=== PATIENT | female | born 1940 | race African-American/Black ===

== ENCOUNTER 2017-02-25 14:13 | Emergency (ER) | payer MEDICARE ==
[2017-02-25 14:35] LABS: #Basophils 0.1 thou/uL (0.0-0.2); #Eosinphils 0.1 thou/uL (0.0-0.7); #Lymphocytes 2.4 thou/uL (1.20-3.40); #Monocytes 0.8 thou/uL (0.11-0.59); #Neutrophils 2.5 thou/uL (1.40-6.50); %Basophils 1.3 % (0.0-1.0); %Eosinophils 1.1 % (0.0-10.0); %Monocytes 13.6 % (0.0-10.0); Hematocrit 36.6 % (36.0-47.0); Mean Platelet Volume 6.9 fL (7.4-10.4); White Blood Cell (WBC) Count 5.9 thou/uL (4.8-10.8)
[2017-02-25 14:58] LABS: ALT (SGPT) Less than 7 U/L (8-55); AST (SGOT) 14 U/L (5-34); Alkaline Phosphatase 119 U/L (40-150); Anion Gap 13 mmol/L (10-20); BUN (Urea Nitrogen) 20 mg/dL (9.8-20.1); Bilirubin, Total 0.2 mg/dL (0.2-1.2); CK (CPK) 48 U/L (29-168); Calc. Creatinine Clearance 0 mL/min (70-130); Calcium 9.6 mg/dL (7.8-10.44); Carbon Dioxide 34 mmol/L (23-31); Chloride 98 mmol/L (98-107); Estimated GFR-MDRD 48; Globulin 3.4 g/dL (2.4-3.5); Protein, Total 7.5 g/dL (6.0-8.3)
[2017-02-25 15:03] LABS: Troponin I Less than 0.010 ng/mL (< 0.028)
--- NOTE | 2017-02-25 15:26 | RAD ---
FRONTAL VIEW CHEST: INDICATION: New-onset chest pain. FINDINGS: The cardiomediastinal silhouette is stable. No new consolidation or effusion. No pneumothorax is se en. IMPRESSION: Stable chest. POS: [facility]
[2017-02-25 15:46] LABS: Prothrombin Time 14.7 SEC (12.0-14.7)
[2017-02-25 15:50] LABS: Magnesium 2.5 mg/dL (1.6-2.6)
[2017-02-25 18:22] LABS: Troponin I Less than 0.010 ng/mL (< 0.028)
== END 2017-02-25 18:50 | disposition home or self-care (01) ==
LOC: ERS 14:13
DX: R07.9 Chest pain, unspecified (principal); I48.91 Unspecified atrial fibrillation; I10 Essential (primary) hypertension; M19.90 Unspecified osteoarthritis, unspecified site; K21.9 Gastro-esophageal reflux disease without esophagitis; Z79.01 Long term (current) use of anticoagulants; Z79.891 Long term (current) use of opiate analgesic; Z79.899 Other long term (current) drug therapy
CPT/HCPCS: 36415; 71010; 80053; 82553; 83690; 83735; 83880; 84484; 85025; 85610; 93005

== ENCOUNTER 2017-06-28 08:04 | Outpatient (CLI) | payer MEDICARE | END 2017-06-28 08:05 | disposition home or self-care (01) | LOC: BICMAMMO 08:04 | PROVIDERS: ATTEND Internal Medicine | DX: Z12.31 Encounter for screening mammogram for malignant neoplasm of breast (principal); R92.1 Mammographic calcification found on diagnostic imaging of breast | CPT/HCPCS: 77063; 77067 ==

== ENCOUNTER 2017-11-14 14:08 | Observation (INO) | payer MEDICARE ==
[2017-11-14 14:27] LABS: #Basophils 0.1 thou/uL (0.0-0.2); #Eosinphils 0.1 thou/uL (0.0-0.7); #Lymphocytes 2.9 thou/uL (1.20-3.40); #Monocytes 0.8 thou/uL (0.11-0.59); #Neutrophils 3.8 thou/uL (1.40-6.50); %Basophils 0.7 % (0.0-1.0); %Eosinophils 1.9 % (0.0-10.0); %Lymphocytes 38.1 % (21.0-51.0); %Monocytes 9.9 % (0.0-10.0); %Neutrophils 49.4 % (42.0-75.0); Hemoglobin 11.6 g/dL (12.0-16.0); Mean Corpuscular HGB CONC 32.1 g/dL (32.0-36.0); Mean Corpuscular Volume 80.9 fL (78.0-98.0); Mean Platelet Volume 7.1 fL (7.4-10.4); Platelet Count 275 thou/uL (130-400); RBC Distribution Width 12.3 % (11.5-14.5); Red Blood Cell (RBC) Count 4.46 mill/uL (4.20-5.40); White Blood Cell (WBC) Count 7.7 thou/uL (4.8-10.8)
[2017-11-14 14:33] LABS: Prothrombin Time 15.4 SEC (12.0-14.7)
[2017-11-14 14:34] LABS: PTT 43.5 SEC (22.9-36.1)
[2017-11-14 14:35] LABS: INR-International Normal Ratio 1.2
--- NOTE | 2017-11-14 14:41 | CT ---
CT BRAIN WITHOUT CONTRAST: Date: 11/14/17 HISTORY: Stroke alert. Tingling and numbness of left arm and leg. COMPARISON: CT brain of 2008. FINDINGS: There is advanced chronic white matter microvascular ischemic changes. No acute hemorrhage. No midlin e shift or mass effect. No large volume territorial infarctions appreciated. 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 The paranasal sinuses and mastoids are clear. Globes are intact. IMPRESSION: Chronic changes. No acute hemorrhage or large volume infarction. Findings called to Dr. Kowalski at 1422 hours. CODE CR. POS: [facility]
[2017-11-14 14:45] LABS: ALT (SGPT) Less than 7 U/L (8-55); AST (SGOT) 16 U/L (5-34); Albumin 4.4 g/dL (3.4-4.8); Alkaline Phosphatase 136 U/L (40-150); Anion Gap 14 mmol/L (10-20); BUN (Urea Nitrogen) 20 mg/dL (9.8-20.1); Bilirubin, Total 0.3 mg/dL (0.2-1.2); Calc. Creatinine Clearance 0 mL/min (70-130); Calcium 9.5 mg/dL (7.8-10.44); Carbon Dioxide 25 mmol/L (23-31); Chloride 103 mmol/L (98-107); Estimated GFR-MDRD 46; Globulin 3.2 g/dL (2.4-3.5); Glucose 137 mg/dL (83-110); Potassium 4.2 mmol/L (3.5-5.1); Protein, Total 7.6 g/dL (6.0-8.3); Sodium 138 mmol/L (136-145)
[2017-11-14 14:51] LABS: CKMB 0.6 ng/mL (0-6.6); Troponin I Less than 0.010 ng/mL (< 0.028)
--- NOTE | 2017-11-14 15:46 | RAD ---
RADIOGRAPH CHEST 1 VIEW: HISTORY: 77-year-old female with chest pain. FINDINGS: The thoracic aorta is tortuous and ectatic. There is no evidence of air space density, pneumothorax, or pulmonary edema. The lateral costophrenic angles are sharp. IMPRESSION: 1) No acute pulmonary findings. 2) Ectasia of thoracic aorta. jn POS: CET
[2017-11-14] MEDS ORDERED: Senokot 8.6 MG TAB PO PRN (17:30)
[2017-11-14] MEDS ORDERED: Acetaminophen 325 MG TAB PO PRN (17:30)
[2017-11-14 18:04] VITALS: BMI 24.9
[2017-11-14 18:18] LABS: Troponin I Less than 0.010 ng/mL (< 0.028)
[2017-11-14 21:07] LABS: Troponin I Less than 0.010 ng/mL (< 0.028)
--- NOTE | 2017-11-14 23:02 | HP ---
DATE OF ADMISSION: 11/14/2017 CHIEF COMPLAINT: Numbness. HISTORY OF PRESENT ILLNESS: Patient is a 77-year-old female [facility] of some numbness in her left hand. She also reported to me some numbness in the left lower extremity. The patient reports that she has had this in the past and she has actually been in the hospital now, had it evaluated before. Her records indicated that she was last here 2 years ago, at which time she was having issues with atrial fibrillation, but not much mention of any numbness a t that time. The patient reports that she was in her usual state of health this morning, when she st arted experiencing some pain in the left lower extremity that extended up the leg and then affected h er left upper extremity as well that is what prompted her to come to the hospital. She reports that while she was checking in to the emergency department, she had a very brief episode of chest pain, it resolved spontaneously. She had another episode while I was talking to her that was gone within les s than one minute. She states that it is not uncommon for her to have these episodes and they never last very long. She also reports that she will occasionally have some of this numbness, but it tends to go away and does not last long enough for her to be concerned enough that she would come, have it evaluated further. Her pain in the chest has resolved. She describes it as a pressure-type pain. She has no associated symptoms or radiation with it. REVIEW OF SYSTEMS: Notable for tendency toward constipation requiring some stool softeners. Otherwi se 10-system review is negative except for those things mentioned in the history of present illness. PAST MEDICAL HISTORY: Notable for the atrial fibrillation, hypertension, osteoarthritis. Patient re ports that she does have follow up with Dr. Hassan is her corporate travel consultant. Chronic kidney disease sta ge 3, followed by Dr. Teran. PAST SURGICAL HISTORY: Cholecystectomy, hysterectomy. SOCIAL HISTORY: Patient is a nonsmoker, nondrinker, nondrug user. She is . She is FULL CODE and her daughter would be her surrogate decision maker. FAMILY HISTORY: Father of an [place]. Mother had cancer. Brother had cancer. Sister had systemic lupus. ALLERGIES: None. CURRENT MEDICATIONS: Lasix 40 mg every day, isosorbide mononitrate 30 mg every day, Coreg 12.5 every day, clonidine 0.1 mg t.i.d., tramadol 50 mg b.i.d., Eliquis 5 mg b.i.d., hydralazine 50 mg t.i.d., Nifedical 60 mg extended-release p.o. b.i.d., lisinopril 5 mg daily, Protonix 40 mg p.o. daily. PHYSICAL EXAMINATION: VITAL SIGNS: BP 153/74, pulse 78, respirations 16, temperature is 97.9, O2 sats 100%. GENERAL APPEARANE: Age appropriate female, very pleasant and cooperative. She is in no distress. HEENT: PERRL. No OP lesions. NECK: Supple and symmetric. CARDIOVASCULAR: Regular rate and rhythm without murmurs, gallops, or rubs. LUNGS: Clear to auscultation bilaterally with good chest wall expansion and air exchange. ABDOMEN: Soft, nontender, nondistended with positive bowel sounds. EXTREMITIES: Warm and dry. There is trace to 1+ edema in the left ankle. NEUROLOGIC: Patient has full strength and sensation bilaterally. She has no evidence of hypoesthesi as. LABORATORY DATA: White count 7.7, hemoglobin 11.6, platelets 275. INR 1.2, PTT 43.5. Sodium 138, p otassium 4.2, chloride 103, CO2 of 25, BUN 20, creatinine 1.34. Troponin is less than 0.01. Chest x -ray is negative. CT scan of the brain revealed some chronic changes, but no acute hemorrhage or lar ge volume infarction appears to have some old-basal ganglia infarctions present. IMPRESSION AND PLAN: 1. Left-sided numbness. It is unclear if this represents some type of radiculopathy, cord compressi on or transient ischemic attack type symptoms. We will keep the patient on telemetry. We will get M RI of the head and C-spine. We will also obtain an echocardiogram and carotid Dopplers. 2. Chest pain. Patient certainly has significant risk factors. We will keep her on telemetry and g et serial cardiac isoenzymes. 3. Chronic kidney disease, stage 3. Continue with her usual home regimen. She appears to be at her baseline presently. 4. History of hypertension. Continue with her home regimen including lisinopril, Nifedical, hydrala zine, clonidine, and Coreg.
--- NOTE | 2017-11-15 09:23 | MRI ---
MRI BRAIN WITHOUT CONTRAST: Date: 11/15/17 HISTORY: TIA symptoms. COMPARISON: CT brain from 11/14/17. FINDINGS: There is no acute territorial infarct or hemorrhage on the diffusion-weighted imaging sequence. This is confirmed on the ADC map. On the susceptibility weighted imaging sequence, there are no abnormal areas of hemorrhage. There is moderate gliosis with subcortical and deep white matter microvascular ischemic changes, security technician rajinder. Corpus callosum is intact. There is normal marrow signal of the clivus. Moderate degenerative changes upper cervical spine. No hydrocephalus. No midline shift or mass effect. Globes are intact. [employer] [place] flow-voids are maintained. IMPRESSION: 1. No acute intracranial hemorrhage or infarct. 2. Mild microvascular ischemic changes, chronic. POS: SON[facility]
[2017-11-15] MEDS ORDERED: traMADol HCl 50 MG TAB PO PRN (09:47)
[2017-11-15] MEDS ORDERED: Lisinopril 5 MG TAB PO SCH ×2 (10:00→21:00)
[2017-11-15] MEDS ORDERED: Furosemide 40 MG TAB PO SCH (10:00)
[2017-11-15] MEDS ORDERED: NIFEdipine XL 60 MG TAB PO SCH ×2 (10:00→21:00)
[2017-11-15] MEDS ORDERED: Nebivolol HCl 5 MG TAB PO SCH ×2 (10:00→21:00)
[2017-11-15] MEDS ORDERED: Polyethylene Glycol 3350 17 GM Packet PO SCH (10:00)
[2017-11-15] MEDS ORDERED: Apixaban 5 MG TAB PO SCH ×2 (10:00→21:00)
--- NOTE | 2017-11-15 10:13 | MRI ---
MRI CERVICAL SPINE WITHOUT CONTRAST: INDICATIONS: History of TIA symptoms and left shoulder pain. COMPARISON: None. TECHNIQUE: Multiplanar, multisequence MR images were obtained of the cervical spine without IV contrast. FINDINGS: The bone marrow signal intensity appears within normal limits. The visualized aspects of the posterior fossa appear within normal limits. The visualized aspects of the prevertebral soft tissues appear within normal limits. The craniocervical junction, on the sagittal images only, appears within normal limits. At the C2-C3 level, there is mild to moderate facet joint degenerative change and a small central pro trusion. The protrusion does efface the ventral subarachnoid space without cord contact. No appreci able neural foraminal narrowing is evident. At C3-C4, there is a broad-based disk osteophyte complex with facet joint degenerative change. There is some slight prominence and buckling of the ligamentum flavum that causes moderate narrowing of th e central canal with mild cord flattening. At C4-C5, there is facet joint degenerative change. There is no appreciable neural foraminal or cent ral canal narrowing. At C5-C6, there is a mild broad-based disk osteophyte complex with facet joint degenerative change. There is uncovertebral hypertrophy. There is mild right neural foraminal narrowing and mild central canal narrowing. At C6-C7, there is a mild broad-based bulge and uncovertebral hypertrophy with facet joint degenerati ve change without appreciable central canal or neural foraminal narrowing. At C7-T1, there is a mild broad-based disk osteophyte complex and facet joint degenerative change wit hout appreciable central canal or neural foraminal narrowing. IMPRESSION: 1. Multilevel spondylosis of the cervical spine with moderate narrowing of the central canal at C3-C 4 due to a broad-based disk bulge and prominence of the ligamentum flavum. There is mild cord flatte suhail. 2. Mild central canal and mild right neural foraminal narrowing at C5-C6 due to uncovertebral hypert rophy and facet joint degenerative change. POS: [facility]
--- NOTE | 2017-11-15 10:15 | PRG ---
DATE OF SERVICE: 11/15/2017 SUBJECTIVE: The patient feels fine this morning. She has no further numbness. No further chest fiona n. OBJECTIVE: VITAL SIGNS: Temperature 97.6, pulse 61, respirations 18, she is 99% on room air, BP 157/61 up to 17 190. GENERAL APPEARANCE: Age appropriate female in no distress. She is awake, alert, oriented, pleasant and cooperative. HEART: Has regular rate and rhythm without murmurs, gallops or rubs. LUNGS: Clear bilaterally. ABDOMEN: Soft, nontender and nondistended. EXTREMITIES: Warm and dry. NEUROLOGIC: Patient has 5/5 strength in all 4 extremities and normal sensation throughout. IMAGING DATA: Results so far, MRI of the brain shows some mild microvascular issues, but nothing radha or otherwise. IMPRESSION AND PLAN: 1. Left-sided paresthesias, unclear etiology. Patient will have an MRI of the C-spine, carotid Dopp lers and an echocardiogram today. Also, have a Neurology consult. 2. Chest pain, very brief episodes lasting less than 1 minute and fairly atypical in nature. She benton s had negative troponins x3. Continue with tele. I have echocardiogram performed today. If that al l remains unremarkable, would simply have the patient follow up on that as an outpatient. 3. Hypertension. Resume the patient's usual home medications. 4. Mild chronic renal insufficiency. This is stable and at her baseline. 5. Hyperlipidemia. Continue with Lipitor. 6. History of atrial fibrillation. Continue with Eliquis.
--- NOTE | 2017-11-15 10:55 | ULT ---
CAROTID DOPPLER ULTRASOUND: Date: 11/15/17 HISTORY: TIA symptoms. COMPARISON: MRI brain dated 11/15/17. TECHNIQUE: Real-time Rene scale, color Doppler, and spectral analysis of the extracranial carotid and vertebral arteries was performed. FINDINGS: Antegrade flow both vertebral arteries. No elevated peak systolic velocities of the internal carotid arteries. Right ICA/CCA ratio is 0.90. Left ICA/CCA ratio is 1.31. IMPRESSION: No hemodynamically significant stenosis. POS: [facility]
[2017-11-15] MEDS ORDERED: hydrALAZINE 25 MG TAB PO SCH (15:00)
[2017-11-15] MEDS ORDERED: cloNIDine 0.1 MG TAB PO SCH (15:00)
[2017-11-15 15:58] VITALS: BP 138/58; TEMP 98.1
[2017-11-15] MEDS ORDERED: Atorvastatin Calcium 10 MG TAB PO SCH (21:00)
--- NOTE | 2017-11-15 23:51 | DIS ---
DATE OF ADMISSION: 11/14/2017 DATE OF DISCHARGE: 11/15/2017. DISCHARGE DIAGNOSES: 1. Left-sided paresthesias. 2. Cervical spinal stenosis secondary to broad-based disk bulge and prominent ligamentum flavum at C 3-C4 with mild cord flattening. 3. Hypertension. 4. Chronic kidney disease stage 3. 5. Chest pain. HOSPITAL COURSE: This patient is a 77-year-old female who presented via the emergency department [facility] with some left-sided numbness. The patient reported that she had had similar episodes in the past, but that typically had resolved. She also reported a very brief pain in the left chest area to maciel the shoulder which lasted less than a minute. She had initial CT scan of the brain which was un remarkable. She was subsequently placed in the hospital for possible TIA type symptoms. The patient had a chest x-ray which was negative. She had a brain MRI which was unremarkable. Carotid Dopplers were negative. Cervical spine MRI did reveal the above-mentioned disk bulge with hypertrophic ligam entum flavum with some flattening of the spine at C3-C4. She was seen in consultation by Neurology a s well. Ultimately, it was felt that the patient's symptoms were more likely related to neuropathy t john from ischemic issues. With that, the patient was felt to be stable for discharge to home. Of no te, echocardiogram is currently being obtained and results are still pending at the time of discharge . PHYSICAL EXAMINATION: VITAL SIGNS: On the day of discharge, temperature is 98.1, pulse 51, respirations 16, O2 sat 99% on room air, BP 138/58. GENERAL: Extremely pleasant age appropriate female in no distress. She is awake, alert, oriented, p leasant, cooperative. HEENT: PERRL. No OP lesions. NECK: Supple and symmetric. HEART: Regular rate and rhythm. LUNGS: Clear bilaterally. ABDOMEN: Soft, nontender and nondistended. EXTREMITIES: Warm and dry. NEUROLOGIC: She has normal sensation and strength throughout. DISPOSITION: The patient will be discharged home. She will be on a renal diet. Her activity level is as tolerated. She will continue with her usual home medications with no new additions and she bao l follow up with Alison Castillo at next available appointment. She will be called if there are any signif icant findings on the echocardiogram.
--- NOTE | 2017-11-16 00:07 | CON ---
DATE OF CONSULTATION: 11/15/2017 REFERRING PROVIDER: Dr. Lamin Ivy. REASON FOR CONSULTATION: Left-sided paresthesia. HISTORY OF PRESENT ILLNESS: Ms. Myles is a pleasant 77-year-old -Monegas[place] female, who has b een consulted for evaluation of left-sided paresthesia. She reports that yesterday she started notic ing numbness and tingling in her left hand which then followed involving whole left upper extremity a nd left lower extremity. She also had some numbness and tingling on the left side of the face. She also complained of having headache in the left frontotemporal region. She also had chest pain along with the numbness and tingling. She denied having vision changes, diplopia, ptosis, dysarthria, dysp hagia or difficulty with gait or balance. She denied having any weakness in upper and lower extremit ies. She reports that her symptoms are much improved this morning. She denies having any headache, chest pain, palpitation, lightheadedness or dizziness at this time. PAST MEDICAL HISTORY: Significant for hypertension, atrial fibrillation, osteoarthritis, chronic kid gibran disease stage 3. PAST SURGICAL HISTORY: Significant for cholecystectomy and hysterectomy. SOCIAL HISTORY: She denies smoking, alcohol use, or illicit drug use. FAMILY HISTORY: Significant for father who of [place]. Mother and brother with cancer. CURRENT MEDICATIONS: Please review MAR. ALLERGIES: No known drug allergies. REVIEW OF SYSTEMS: As mentioned above in history of present illness negative. PHYSICAL EXAMINATION: VITAL SIGNS: Blood pressure 138/58, pulse of 51, temperature of 98.1, respirations of 16, O2 sats 99 % on room air. GENERAL: Well-developed, well-nourished -Monegasque female, in no apparent distress. RESPIRATORY: Clear to auscultation bilaterally. CARDIOVASCULAR: Regular rate and rhythm. NEUROLOGIC: Mental status: The patient is awake, alert, oriented x3. Speech and language: Fluent speech. Cranial nerves: Pupils are 3 mm and reactive. Visual ventura are intact. Extraocular muscl es are intact. No nystagmus is noted. Face is symmetric. Tongue and uvula are midline. Motor exam showed normal tone and bulk with 5/5 strength in both upper extremities. Sensory: Sensation is int act and symmetric. Deep tendon reflexes 2+ reflexes in both upper and lower extremities. Babinski: Plantar responses flexion bilaterally. Coordination intact to [id number] and finger tapping bilaterally. LABORATORY DATA: Reviewed, which included CBC, coag panel, CMP, which is significant for PT of 15.4, INR 1.2, PTT of 43.5, creatinine of 1.34. Otherwise, unremarkable. IMAGING STUDIES: MRI brain without contrast was reviewed, which showed no acute intracranial abnorma lity. MRI C-spine was reviewed, which showed multilevel degenerative disk disease. Carotid Doppler results were reviewed, which showed no hemodynamically significant stenosis on both sides. IMPRESSION: 1. Transient episode of left-sided paresthesia, likely transient ischemic attack. 2. History of atrial fibrillation. 3. Malignant hypertension. Ms. Myles is a pleasant 77-year-old -[place]one[place] female with a history of hypertension and atri al fibrillation who presented with the left-sided paresthesia. Her symptoms are now resolved. This event is likely suggestive of TIA. I have reviewed her MRI brain and C-spine. Brain showed no acute intracranial abnormality. MRI C-spine showed mild to moderate multilevel degenerative disk disease. At this time, I would recommend continuing on Eliquis for secondary stroke prevention. Patient is okay to be discharged to home. Thank you for consultation.
[2017-11-16] MEDS ORDERED: Furosemide 40 MG TAB PO SCH (09:00)
[2017-11-16] MEDS ORDERED: Polyethylene Glycol 3350 17 GM Packet PO SCH (09:00)
--- NOTE | 2017-11-16 14:51 | EKG ---
Test Reason : Blood Pressure : / mmHG Vent. Rate : 066 BPM Atrial Rate : 066 BPM P-R Int : 166 ms QRS Dur : 080 ms QT Int : 408 ms P-R-T Axes : 064 023 030 degrees QTc Int : 427 ms Normal sinus rhythm Normal ECG Confirmed by EDWARDO MARTINEZ ([id number]), editor map SUKHI CONTI ([id number]) on 11/16/2017 2:51:14 PM Referred By: Confirmed By:EDWARDO MARTINEZ
== END 2017-11-15 17:09 | disposition home or self-care (01) ==
LOC: ERS 14:08 → 2SE 16:07
PROVIDERS: ADMIT Internal Medicine; ATTEND Internal Medicine
DX: R20.2 Paresthesia of skin (principal); M48.02 Spinal stenosis, cervical region; I12.9 Hypertensive chronic kidney disease with stage 1 through stage 4 chronic kidney disease, or unspecified chronic kidney disease; N18.3 Chronic kidney disease, stage 3 (moderate); I48.91 Unspecified atrial fibrillation; Z79.01 Long term (current) use of anticoagulants; Z79.899 Other long term (current) drug therapy
CPT/HCPCS: 70450; 70551; 71045; 72141; 80053; 82553; 82962; 84484 ×2; 85025; 85610; 85730; 93005; 93306; 93880; 99285; G0378 ×2; 36415; 36416

== ENCOUNTER 2018-06-29 09:46 | Outpatient (CLI) | payer MEDICARE ==
--- NOTE | 2018-06-29 11:22 | MMO ---
Bilateral MAMMO Bilat Screen [facility]. CLINICAL HISTORY: Patient is 78 years old and is seen for screening. The patient has no family history of breast cancer. The patient has no personal history of cancer. The patient has a history of left Excisional Biopsy in 1969 - benign. VIEWS: The views performed were: bilateral craniocaudal with tomosynthesis; bilateral mediolateral oblique with tomosynthesis; left mediolateral oblique; and left exaggerated craniocaudal. FILMS COMPARED: The present examination has been compared to prior imaging studies performed at on 05/16/2008, 05/22/2009, 05/25/2010, 05/27/2011, 06/06/2014, 06/09/2015, 06/09/2016 and 06/28/2017. MAMMOGRAM FINDINGS: The breasts are heterogeneously dense, which could obscure a lesion on mammography. Finding 1: There are stable benign appearing calcifications seen in both breasts. There are also vascular calcifications. Finding 2: There is a stable nodule seen in the inner region of the right breast. There are no suspicious masses, suspicious calcifications, or new areas of architectural distortion. IMPRESSION: THERE IS NO MAMMOGRAPHIC EVIDENCE OF MALIGNANCY. A ROUTINE FOLLOW-UP MAMMOGRAM IN 1 YEAR IS RECOMMENDED. THE RESULTS OF THIS EXAM WERE SENT TO THE PATIENT. ACR BI-RADS Category 2 - Benign finding MAMMOGRAPHY NOTE: 1. A negative mammogram report should not delay a biopsy if a dominant of clinically suspicious mass is present. 2. Approximately 10% to 15% of breast cancers are not detected by mammography. 3. Adenosis and dense breasts may obscure an underlying neoplasm.
== END 2018-06-29 09:47 | disposition home or self-care (01) ==
LOC: BICMAMMO 09:46
PROVIDERS: ATTEND Internal Medicine
DX: Z12.31 Encounter for screening mammogram for malignant neoplasm of breast (principal)
CPT/HCPCS: 77063; 77067

== ENCOUNTER 2019-01-29 19:22 | Inpatient (IN) | payer MEDICARE ==
[2019-01-29 20:03] LABS: #Basophils 0.1 thou/uL (0.0-0.2); #Eosinphils 0.1 thou/uL (0.0-0.7); #Lymphocytes 2.9 thou/uL (1.20-3.40); #Monocytes 0.7 thou/uL (0.11-0.59); #Neutrophils 4.6 thou/uL (1.40-6.50); %Basophils 0.8 % (0.0-1.0); %Eosinophils 0.8 % (0.0-10.0); %Lymphocytes 34.6 % (21.0-51.0); %Monocytes 8.8 % (0.0-10.0); Hemoglobin 12.8 g/dL (12.0-16.0); Mean Corpuscular HGB CONC 31.8 g/dL (32.0-36.0); Mean Corpuscular Hemoglobin 25.8 pg (27.0-31.0); Mean Corpuscular Volume 81.1 fL (78.0-98.0); Mean Platelet Volume 7.1 fL (7.4-10.4); Platelet Count 334 thou/uL (130-400); RBC Distribution Width 12.5 % (11.5-14.5); Red Blood Cell (RBC) Count 4.97 mill/uL (4.20-5.40); White Blood Cell (WBC) Count 8.3 thou/uL (4.8-10.8)
--- NOTE | 2019-01-29 20:21 | CT ---
CT head noncontrast HISTORY: Dizziness. Hypertension. COMPARISON: 11/14/2017. FINDINGS: There is no evidence of acute intracranial hemorrhage or infarct. Mild diffuse cortical atr ophy and chronic ischemic small vessel disease. Stable. There is no mass effect or shift of midline structures. Visualized paranasal sinuses remain well aerated. IMPRESSION: Chronic-type findings are stable. No acute intracranial abnormalities are demonstrated.
[2019-01-29 20:25] LABS: ALT (SGPT) Less than 7 U/L (8-55); AST (SGOT) 14 U/L (5-34); Albumin 4.8 g/dL (3.4-4.8); Alkaline Phosphatase 136 U/L (40-110); Anion Gap 16 mmol/L (10-20); BUN (Urea Nitrogen) 18 mg/dL (9.8-20.1); Bilirubin, Total 0.3 mg/dL (0.2-1.2); Calc. Creatinine Clearance 0 mL/min (70-130); Calcium 10.2 mg/dL (7.8-10.44); Carbon Dioxide 25 mmol/L (23-31); Chloride 104 mmol/L (98-107); Estimated GFR-MDRD 49; Globulin 3.5 g/dL (2.4-3.5); Glucose 103 mg/dL (83-110); Lipase 23 U/L (8-78); Protein, Total 8.3 g/dL (6.0-8.3); Sodium 141 mmol/L (136-145)
[2019-01-29] MEDS ORDERED: Diltiazem HCl 125 MG, Admixture Fee 1 EACH in Sodium Chloride 0.9% 100 ML IVPB SCH (21:15)
[2019-01-29] MEDS ORDERED: Aspirin Chewable 81 MG TAB ONE (22:21)
[2019-01-29] MEDS ORDERED: Metoprolol Tartrate 5 MG/5 ML VIAL ONE (22:42)
[2019-01-29 23:54] LABS: Troponin I 0.017 ng/mL (< 0.028)
[2019-01-30] MEDS ORDERED: Nitroglycerin 2% Ointment 1 INCH/1 GM Packet ONE (00:29)
[2019-01-30] MEDS ORDERED: Acetaminophen 325 MG TAB ONE (00:36)
[2019-01-30 01:25] VITALS: BMI 24.6
[2019-01-30] MEDS ORDERED: Acetaminophen 325 MG TAB PO PRN (01:36)
[2019-01-30] MEDS ORDERED: Ondansetron PF 4 MG/2 ML Vial IVP PRN ×2 (01:36→01:46)
[2019-01-30] MEDS ORDERED: Ondansetron ODT 4 MG TAB SL PRN (01:36)
[2019-01-30] MEDS ORDERED: Acetaminophen 500 MG TAB PO PRN (01:46)
[2019-01-30] MEDS ORDERED: traMADol HCl 50 MG TAB PO PRN (01:46)
[2019-01-30] MEDS ORDERED: cloNIDine 0.1 MG TAB PO PRN (01:46)
[2019-01-30] MEDS ORDERED: hydrALAZINE 20 MG/ML VIAL SLOW IVP PRN (01:46)
[2019-01-30] MEDS ORDERED: Ondansetron ODT 4 MG TAB PO PRN (01:46)
[2019-01-30 02:45] LABS: Troponin I Less than 0.010 ng/mL (< 0.028)
[2019-01-30 02:46] LABS: Band 1 % (5-11); Eosinophils 1 % (0-10); Hemoglobin 13.2 g/dL (12.0-16.0); Lymphocytes 40 % (21-51); MDiff Complete? YES; Mean Corpuscular HGB CONC 32.1 g/dL (32.0-36.0); Mean Corpuscular Hemoglobin 26.1 pg (27.0-31.0); Mean Corpuscular Volume 81.2 fL (78.0-98.0); Mean Platelet Volume 7.1 fL (7.4-10.4); Monocytes 8 % (0-10); Neutrophil 49 % (42-75); Platelet Count 321 thou/uL (130-400); RBC Distribution Width 12.5 % (11.5-14.5); Reactive Lymphocytes 1 % (0-10); Red Blood Cell (RBC) Count 5.05 mill/uL (4.20-5.40); White Blood Cell (WBC) Count 7.4 thou/uL (4.8-10.8)
[2019-01-30 02:58] LABS: Anion Gap 17 mmol/L (10-20); BUN (Urea Nitrogen) 16 mg/dL (9.8-20.1); Calc. Creatinine Clearance 39 mL/min (70-130); Calcium 10.3 mg/dL (7.8-10.44); Carbon Dioxide 22 mmol/L (23-31); Chloride 106 mmol/L (98-107); Estimated GFR-MDRD 54; Glucose 103 mg/dL (83-110); Magnesium 1.9 mg/dL (1.6-2.6); Potassium 3.4 mmol/L (3.5-5.1); Sodium 142 mmol/L (136-145)
[2019-01-30] MEDS ORDERED: Nitroglycerin 2% Ointment 1 INCH/1 GM Packet TOP SCH (06:00)
--- NOTE | 2019-01-30 07:32 | HP ---
PRIMARY CARE PROVIDER: lAison Castillo MD CHIEF COMPLAINT: Dizziness. HISTORY OF PRESENT ILLNESS: This is an 78-year-old female, who presented to [facility] Emergency Department complaining of dizziness for approximately 1 week. Symptoms were intermittent without relation to any specific activity; however, the patient did notice some increase in dizziness with movement. The patient denied any chest pain, nausea, vomiting or diarrhea. The patient denied any unilateral weakness, difficulty with speech or visual disturbance. The patient denied any recent fall, travel history or family members with similar symptoms. The patient did admit to some chest discomfort related to palpitations, which the patient has intermittently. The patient denied any fever, chills, change to her chronic medication regimen, blood in her stool or dysuria. In the emergency room, the patient underwent general evaluation and noted on EKG with atrial fibrillation with heart rates in the 110s to 120s. The patient received IV metoprolol in addition to transdermal nitroglycerin and aspirin 324 mg. The patient was also noted with elevated blood pressure with systolic 205 and a diastolic of 97. The patient was referred to the hospitalist service in observation unit for further evaluation. PAST MEDICAL HISTORY: 1. Hypertension. 2. Chronic atrial fibrillation, on chronic anticoagulation with Eliquis. 3. Osteoarthritis. 4. Chronic kidney disease, stage 3. 5. Cervical spinal stenosis. PAST SURGICAL HISTORY: 1. Status post cholecystectomy. 2. Status post hysterectomy. CURRENT MEDICATIONS: 1. Vitamin D3 1000 units p.o. daily. 2. Hydralazine 50 mg p.o. t.i.d. 3. Lisinopril 5 mg p.o. b.i.d. 4. Nifedipine XL 60 mg p.o. b.i.d. 5. Protonix 40 mg p.o. daily. 6. Pravachol 40 mg p.o. at bedtime. 7. Tramadol 50 mg p.o. b.i.d. p.r.n. 8. Eliquis 5 mg p.o. b.i.d. 9. Clonidine 0.1 mg p.o. t.i.d. 10. Lasix 40 mg p.o. daily. 11. Imdur 30 mg p.o. daily. ALLERGIES: NO KNOWN DRUG ALLERGIES. FAMILY HISTORY: Father of complications of a myocardial infarction. Mother with an unknown type of cancer. SOCIAL HISTORY: The patient resides in [place], [place]. Functional of all activities of daily living. No alcohol, tobacco or illicit drug use. Retired. REVIEW OF SYSTEMS: CONSTITUTIONAL: Negative for weight loss or gain, ability to conduct usual activities. SKIN: Negative for rash, itching. EYES: Negative for double vision, pain. ENT/MOUTH: Negative for nose bleeding, neck stiffness, pain, tenderness. CARDIOVASCULAR: Negative for palpitations, dyspnea on exertion, orthopnea. RESPIRATORY: Negative for shortness of breath, wheezing, cough, hemoptysis, fever or night sweats. GASTROINTESTINAL: Negative for poor appetite, abdominal pain, heartburn, nausea, vomiting, constipation, or diarrhea. GENITOURINARY: Negative for urgency, frequency, dysuria, nocturia. MUSCULOSKELETAL: Negative for pain, swelling. NEUROLOGIC/PSYCHIATRIC: Negative for anxiety, depression. ALLERGY/IMMUNOLOGIC: Negative for skin rash, bleeding tendency. Otherwise negative except as stated per HPI. PHYSICAL EXAMINATION: VITAL SIGNS ON ADMISSION: Blood pressure 181/88, pulse 78, respiratory rate 14, temperature 97.9 degrees Fahrenheit, and O2 saturation 100% on room air. GENERAL APPEARANCE: This is an 78-year-old female, alert and oriented x3, pleasant, responsive, in no acute distress. HEENT: Pupils are equal, round, reactive to light and accommodation. Extraocular muscles are intact. No scleral icterus. No conjunctival injection. Nares patent. OP is clear. Teeth in good repair. NECK: Supple. No cervical adenopathy. No thyromegaly. No carotid bruits. No JVD appreciated. Cervical spine with full active and passive range of motion. No meningeal signs noted. CHEST: Lungs are clear to auscultation bilaterally. CARDIOVASCULAR: S1 and S2 with irregular rate and rhythm. No murmur, rub or gallop appreciated. ABDOMEN: Rounded, soft, nontender, and nondistended. Bowel sounds are positive in all 4 quadrants. No hepatosplenomegaly. No abdominal bruits. No rebound or guarding appreciated. EXTREMITIES: Warm and dry with fair turgor. No clubbing, cyanosis or asymmetric edema appreciated. Pulses are palpable distally at the dorsalis pedis, posterior tibial, and popliteal arteries bilaterally. Capillary refill less than 2 seconds. NEUROLOGIC: Cranial nerves 2 through 12 are grossly intact. No focal or lateralizing signs appreciated. PERTINENT LABORATORY AND X-RAY FINDINGS: Sodium 141, potassium 4.0, chloride 104, CO2 of 25, BUN 18, creatinine 1.28, estimated GFR 49, glucose 103, and calcium 10.2. ALT less than 7 and alkaline phosphatase 136. Troponin I negative x2. Lipase 23. CBC showed a white blood cell count of 8.3, hemoglobin 13, hematocrit 40, and platelet count [address] of the brain without contrast dated 01/29/2019 showed no acute intracranial process. EKG dated 01/29/2019 by my interpretation shows an atrial fibrillation with heart rates in the 110s. Normal R-wave progression noted in the precordial leads. Normal axis. No acute ST-T wave changes appreciated. ASSESSMENT/PLAN: 1. Atrial fibrillation with rapid ventricular response. We will place in observation status on the telemetry unit. Resume home regimen to include nifedipine XL 60 mg b.i.d. with Eliquis 5 mg b.i.d. Continue to monitor for rate control. Check 2D transthoracic echocardiogram in the a.m. 2. Hypertensive urgency. Resume home blood pressure regimen and monitor serial blood pressure response. The patient may need additional titration of her antihypertensive regimen on an ongoing basis after discharge. 3. Chronic kidney disease, stage 3. Avoid nephrotoxic agents and limit contrast exposure. Repeat creatinine in the a.m. 4. Chronic anticoagulation. Continue Eliquis 5 mg b.i.d. Repeat CBC in the a.m. 5. Prophylaxis. SCDs while in bed. Protonix 40 mg p.o. daily. 6. Code status is full. Surrogate medical decision maker is the patient's daughter. Job ID: [id number]
[2019-01-30] MEDS ORDERED: Apixaban 5 MG TAB PO SCH (09:00)
[2019-01-30] MEDS ORDERED: Famotidine 20 MG TAB PO SCH (09:00)
[2019-01-30] MEDS ORDERED: Non-Formulary Item 1 EACH (Hydralazine Hcl [Apresoline] 50 MG) PO SCH (09:00)
[2019-01-30] MEDS: Lisinopril 5 MG TAB PO SCH ×2 (09:33→20:53)
[2019-01-30] MEDS: NIFEdipine XL 60 MG TAB PO SCH ×2 (09:34→20:53)
[2019-01-30] MEDS: cloNIDine 0.1 MG TAB PO SCH ×3 (09:35→20:53)
[2019-01-30] MEDS: hydrALAZINE 25 MG TAB PO SCH ×3 (09:36→20:53)
[2019-01-30] MEDS: Isosorbide Mononitrate (ER) 30 MG TAB PO SCH (09:36)
[2019-01-30] MEDS: Furosemide 40 MG TAB PO SCH (09:40)
--- NOTE | 2019-01-30 16:35 | CON ---
DATE OF CONSULTATION: HISTORY OF PRESENT ILLNESS: Katy Myles is a pleasant 78-year-old black female, who was followed by Dr. Hassan for many years. She has had cardiac catheterizations in the past, which showed mild coronary artery disease. She also has a history of diastolic heart failure and in August 2015, she presented with atrial fibrillation, was placed on Eliquis. In June 2017, an echocardiogram revealed an ejection fraction of 60% to 65% with mild concentric left ventricular hypertrophy and suspicious for diastolic dysfunction. She was last seen by Dr. Hassan in June 2018. It is of note that she was on carvedilol 12.5 mg b.i.d. and she is no longer taking that medication. She states that her insurance would no longer pay for, which is somewhat surprising. Over the last week, she has had intermittent episodes of dizziness. Issues would occur when she would stand up, where she would feel extremely dizzy for 10 to 15 seconds. From her description, this did not sound like vertigo. She did not feel any palpitations. Since she has been admitted, she has been seen to have pauses up to 3.6 seconds when she is in atrial fibrillation. She also complains of chest pressure that also lasts 10 to 15 seconds and does not seem to be related to the dizzy episodes. It is of note in the emergency room, she was given diltiazem 20 mg IV, placed on 5 mg/hour and also given 5 mg of metoprolol intravenously around 2230 hours last night. The first long pause that she had was approximately six and half hours after that. It is unclear to me if she was on Cardizem at that time. PAST MEDICAL HISTORY: Mild coronary artery disease, hypertension, hyperlipidemia, chronic kidney disease, and cervical spinal stenosis. PAST SURGICAL HISTORY: Hysterectomy and cholecystectomy. MEDICATIONS: 1. Eliquis 5 mg b.i.d. 2. Clonidine 0.1 t.i.d. 3. Furosemide 40 daily. 4. Hydralazine 50 mg t.i.d. 5. Isosorbide mononitrate 30 mg q.a.m. 6. Lisinopril 5 mg b.i.d. 7. Nifedipine 60 b.i.d. 8. Protonix 40 daily. 9. Pravastatin 40 at bedtime. 10. Tramadol p.r.n. ALLERGIES: NONE. SOCIAL HISTORY: She does not smoke or drink. FAMILY HISTORY: Father had myocardial infarction. REVIEW OF SYSTEMS: Unremarkable except as above. PHYSICAL EXAMINATION: VITAL SIGNS: Blood pressure 157/73 and pulse is 63 and sinus rhythm at the present time. HEENT: PERRL. NECK: Supple. CHEST: Clear. CARDIAC: S1 and S2 normal without any S3, S4, or murmurs. Carotid upstrokes normal without bruits. ABDOMEN: Normal bowel sounds without tenderness or organomegaly. EXTREMITIES: Revealed no clubbing, cyanosis, or edema. NEUROLOGIC: Grossly intact. SKIN: Warm and dry. LABORATORY DATA: Admission EKG revealed atrial fibrillation with fast ventricular response of 112 per minute, nonspecific ST and T-wave changes. CBC is unremarkable. Sodium 142, potassium 3.4, chloride 106, carbon dioxide 22, BUN 16, and creatinine 1.16. Cardiac enzymes x3 are normal. TSH is normal. IMPRESSION: 1. Paroxysmal atrial fibrillation. 2. Episodes of lightheadedness and dizziness, which may be orthostatic related or could be related to her pauses, which she has up to 3.6 seconds on the monitor here. It is unclear to me if she was still on intravenous Cardizem at that time. Also, she was taking carvedilol 12.5 b.i.d. in June 2018, but stated that the insurance would no longer pay for that, which is somewhat surprising. 3. Mild coronary artery disease. 4. History of diastolic heart failure. 5. Hypertension. 6. Hypercholesterolemia. 7. Gastroesophageal reflux disease. PLAN: The patient will continue to be monitored. She is in sinus rhythm at the present time. She certainly may need a pacemaker placement and to be on antiarrhythmic medication to try to suppress the atrial fibrillation. I would discontinue the Eliquis and place her on Lovenox instead, in case the ultimate decision is made for a pacemaker. We will continue to follow the patient with you. Job ID: [id number]
[2019-01-30] MEDS: Pravastatin Sodium 40 MG TAB PO SCH (20:53)
[2019-01-30] MEDS: Enoxaparin Sodium 60 MG/0.6 ML SYRINGE SC SCH (20:54)
[2019-01-31] MEDS: cloNIDine 0.1 MG TAB PO SCH ×3 (09:53→21:56)
[2019-01-31] MEDS: Enoxaparin Sodium 60 MG/0.6 ML SYRINGE SC SCH ×2 (09:54→21:57)
[2019-01-31] MEDS: hydrALAZINE 25 MG TAB PO SCH ×3 (09:54→21:56)
[2019-01-31] MEDS ORDERED: PROPOFOL 200 MG/20 ML VIAL ONE (09:54)
[2019-01-31] MEDS: Furosemide 40 MG TAB PO SCH (09:54)
[2019-01-31] MEDS ORDERED: Lidocaine 1% PF 5 ML VIAL ONE (09:54)
[2019-01-31] MEDS: Lisinopril 5 MG TAB PO SCH ×2 (09:55→21:57)
[2019-01-31] MEDS: NIFEdipine XL 60 MG TAB PO SCH ×2 (09:55→21:56)
[2019-01-31] MEDS: Isosorbide Mononitrate (ER) 30 MG TAB PO SCH (09:55)
--- NOTE | 2019-01-31 14:01 | CON ---
DATE OF CONSULTATION: 01/31/2019 REASON FOR CONSULTATION: Atrial arrhythmias. DICTATED FOR: yK Shepherd MD HISTORY OF PRESENT ILLNESS: Ms. Myles is an 78-year-old woman with known atrial arrhythmias. She reports she presented to the hospital in August of 2015 in atrial fibrillation and was placed on Eliquis at that time. She also carries a history of diastolic heart failure. Echocardiogram in June 2017 shows an ejection fraction of 60% to 65%, with a concentric LVH. She is also on carvedilol 12.5 mg b.i.d., but reports no longer taking this medication and states that her insurance would no longer pay for that. Ms. Myles presented to the hospital this day reporting intermittent episodes of dizziness for 10 to 15 seconds when she would stand up. She did not have any associated palpitations. Since admission, she was given diltiazem 20 mg IV bolus and then placed on a drip for 5 mg an hour, in addition to 5 mg of IV Lopressor around 1030 hours on 01/29. That following morning, at roughly 5 a.m., she was seen to have two pauses of 3.6 and 3.7 seconds respectively and her AV kartik blocking agents were stopped. She is also seen to have to be in atrial flutter, occasionally fluctuating between rapid at 140 beats per minute and bradycardic as mentioned with pauses. EP consult is given regarding her pauses and her atrial arrhythmias. Ms. Myles currently denies any heart racing, palpitations, chest pain, pressure, syncope, near syncope, stroke, or stroke-like symptoms. She is tolerating Eliquis without any bleeding dyscrasias. Recent history is positive for dizziness and occasional chest pressure that seems unrelated to her dizzy episodes. PAST MEDICAL HISTORY: 1. Mild coronary artery disease. 2. Hypertension, difficult to control. 3. Hyperlipidemia. 4. Chronic kidney disease. 5. Cervical spinal stenosis. 6. Paroxysmal atrial fibrillation. 7. Diastolic heart failure. 8. Anxiety. ALLERGIES: NO KNOWN DRUG ALLERGIES. HOME MEDICATIONS: 1. Imdur 30 mg daily. 2. Lasix 40 mg daily. 3. Vitamin D 1000 units daily. 4. Eliquis 5 mg b.i.d. 5. Ultram 50 mg b.i.d. 6. Apresoline 50 mg t.i.d. 7. Clonidine 0.1 mg t.i.d. 8. Pravastatin 40 mg at bedtime. 9. Protonix 40 mg daily. 10. Nifedipine 60 mg b.i.d. 11. Zestril or lisinopril 5 mg b.i.d. FAMILY HISTORY: Noncontributory. SOCIAL HISTORY: Negative for alcohol, tobacco, or illicit drug use. Strong family support is present. REVIEW OF SYSTEMS: A 12-point review of systems is negative except that listed above in HPI. OBJECTIVE: VITAL SIGNS: Temperature 97.7, pulse 78, blood pressure 148/72, respirations 12, oxygen is 99% on room air. GENERAL: The patient is alert and oriented. Speech is clear. Affect is appropriate. She is resting comfortably in bed during the exam, in no apparent distress. NECK: Supple without jugular venous distention. No lymphadenopathy. Her trachea is midline. Her thyroid is not palpable. LUNGS: Clear to auscultation bilaterally without wheezes, crackles, or rhonchi. Respirations are even and unlabored. HEART: Rate is irregularly irregular. PMI is nondisplaced. No significant murmur, rub, or gallop is appreciated. ABDOMEN: Soft and nontender without palpable masses. Hepatojugular reflux is negative. EXTREMITIES: Warm and dry to touch without clubbing, cyanosis, or edema. NEUROLOGIC: Grossly intact and nonfocal without unilateral deficits or weakness. Gait was not assessed. DATABASE: Hematology was unremarkable. Chemistry showed potassium 3.7, creatinine 1.16, magnesium 1.9. ALT and AST within normal limits. Troponins were negative. TSH 3.19. Echocardiogram dated 07/04/2017, ejection fraction 60% to 65%. Normal left atrial size. Mild concentric LVH, diastolic dysfunction suspected. Telemetry and EKGs all personally reviewed, currently showing atrial flutter with variable AV conduction, though appears to be a cavotricuspid isthmus dependent. Atrial fibrillation is also seen. Two pauses of 3.6 and 3.7 seconds were seen this morning as detailed above. IMPRESSION: 1. Atrial flutter, likely cavotricuspid isthmus dependent in addition to episodes of atrial fibrillation, possibly atypical flutter as well, occasionally rapid ventricular response with rates up to 140, also with pauses of 3.6 seconds in the setting of IV Lopressor given the night before and also diltiazem, but not taking home carvedilol currently. 2. CHADS-VASc score of 5 on the basis of vascular disease, age, female gender, and hypertension, currently on Eliquis 5 mg p.o. b.i.d. Last given on 01/29/2019 per patient, currently on Lovenox b.i.d. for anticoagulation. 3. No significant structural heart disease on prior workup. 4. Hypertension, difficult to control. RECOMMENDATIONS: Long discussion was had with Ms. Myles and her niece at bedside regarding atrial arrhythmias. While she is in typical flutter, her heart rate varies greatly sometimes rapid at 140 beats per minute and there are some documented pauses, though the timing with IV diltiazem and Lopressor cannot be ruled out as contributing to those pauses at this time. Her medications have been discontinued when she was no longer taking her carvedilol, so that was not a contributing factor. My recommendations are for CTI ablation possibly today to address her right-sided atrial flutter. I then like to continue to monitor on telemetry for any residual bradycardia and other AV kartik blocking medications have been reduced. She may need further medications for suppressing or rate controlling any residual atrial fibrillation spells. he may require antiarrhythmic therapy versus PVI in the future to further address her left atrial arrhythmias , but for now we discussed right-sided atrial ablation, If further bradycardic episodes or pauses of greater than 3 seconds are seen, we will consider dual-chamber pacemaker implant on Tuesday. Long-term, she will continue to likely have paroxysmal atrial fibrillation, which could be easier controlled with medications like carvedilol alone once this atrial flutter is dealt with. S which the patient is in agreement with and wishes to proceed at the earliest time. Risks include bleeding at the groin site, arrhythmias, bradycardia, need for pacemaker, pericardial effusion, and recurrence of arrhythmias. She voices understanding and wishes to proceed. Afterwards, we will continue to monitor for bradycardia as mentioned. Thank you for allowing me to participate in the care of this patient. Job ID: [id number]
--- NOTE | 2019-01-31 15:30 | PDOC.HOSPP ---
- Subjective Encounter Date: 01/30/19 Encounter Time: 11:30 Subjective: pt up in bed no complains - Objective Vital Signs & Weight: Vital Signs (12 hours) Temp Pulse Resp BP BP BP Pulse Ox 01/31/19 15:17 81 163/71 H 01/31/19 15:02 81 16 163/71 H 98 01/31/19 11:44 97.8 F 74 18 159/72 H 98 01/31/19 09:55 78 01/31/19 09:54 78 01/31/19 09:53 148/72 H 01/31/19 07:56 97.7 F 78 12 148/72 H 99 01/31/19 04:23 98.6 F 58 L 17 123/58 L 98 Weight Weight 139 lb 1.6 oz I&O: 01/30/19 01/31/19 02/01/19 06:59 06:59 06:59 Intake Total 200 1450 Output Total 400 1500 Balance -200 -50 Result Diagrams: 01/30/19 02:14 01/30/19 02:14 Hospitalist ROS - Review of Systems Cardiovascular: denies: chest pain, palpitations, orthopnea, paroxysmal noc. dyspnea, edema, light headedness, other Gastrointestinal: denies: nausea, vomiting, abdominal pain, diarrhea, constipation, melena, hematochezia, other Genitourinary: denies: dysuria, frequency, incontinence, hematuria, retention, other - Medication Medications: Active Medications Generic Name Dose Route Start Last Admin Trade Name Freq PRN Reason Stop Dose Admin Cholecalciferol 1,000 units 01/30/19 09:00 01/31/19 09:53 Vitamin D3 PO 1,000 units DAILY DIANA Administration Clonidine 0.1 mg 01/30/19 01:46 01/30/19 02:01 Catapres PO 0.1 mg Q4H PRN Administration SBP Greater Than 170 Clonidine 0.1 mg 01/30/19 09:00 01/31/19 15:17 Catapres PO 0.1 mg TID DIANA Administration Enoxaparin Sodium 60 mg 01/30/19 21:00 01/31/19 09:54 Lovenox SC 60 mg 0900,2100 DIANA Administration Furosemide 40 mg 01/30/19 09:00 01/31/19 09:54 Lasix PO 40 mg DAILY DIANA Administration Hydralazine HCl 50 mg 01/30/19 09:00 01/31/19 15:17 Apresoline PO 50 mg TID DIANA Administration Isosorbide Mononitrate 30 mg 01/30/19 09:00 01/31/19 09:55 Imdur Er PO 30 mg DAILY DIANA Administration Lisinopril 5 mg 01/30/19 09:00 01/31/19 09:55 Zestril PO 5 mg BID DIANA Administration Nifedipine 60 mg 01/30/19 09:00 01/31/19 09:55 Procardia Xl PO 60 mg BID DIANA Administration Pantoprazole Sodium 40 mg 01/30/19 09:00 01/31/19 09:54 Protonix PO 40 mg DAILY DIANA Administration Pravastatin Sodium 40 mg 01/30/19 21:00 01/30/19 20:53 Pravachol PO 40 mg HS DIANA Administration Sodium Chloride 10 ml 01/30/19 09:00 01/31/19 09:55 Flush - Normal Saline IVF 10 ml Q12HR DIANA Administration - Exam Neck: negative: supple, symmetric, no JVD, no thyromegaly, no lymphadenopathy, no carotid bruit, JVD Heart: negative: RRR, no murmur, no gallops, no rubs, normal peripheral pulses, irregular, diminshed peripheral pulses, murmur present, II/IV, III/IV Respiratory: negative: CTAB, no wheezes, no rales, no ronchi, normal chest expansion, no tachypnea, normal percussion, rales, rhonchi, tachypneic, wheezes Hosp A/P (1) Dizziness Code(s): R42 - DIZZINESS AND GIDDINESS Status: Acute (2) Afib Code(s): I48.91 - UNSPECIFIED ATRIAL FIBRILLATION Status: Acute (3) Sinus pause Code(s): I45.5 - OTHER SPECIFIED HEART BLOCK Status: Acute - Plan will get cardiology to see pt. she has no more dizziness. she did have 2 pauses not sure if medication related?
--- NOTE | 2019-01-31 15:32 | PDOC.HOSPP ---
- Subjective Encounter Date: 01/31/19 Encounter Time: 09:00 Subjective: pt up in bed no dizziness but gets palpation when she ambulates - Objective Vital Signs & Weight: Vital Signs (12 hours) Temp Pulse Resp BP BP BP Pulse Ox 01/31/19 15:17 81 163/71 H 01/31/19 15:02 81 16 163/71 H 98 01/31/19 11:44 97.8 F 74 18 159/72 H 98 01/31/19 09:55 78 01/31/19 09:54 78 01/31/19 09:53 148/72 H 01/31/19 07:56 97.7 F 78 12 148/72 H 99 01/31/19 04:23 98.6 F 58 L 17 123/58 L 98 Weight Weight 139 lb 1.6 oz I&O: 01/30/19 01/31/19 02/01/19 06:59 06:59 06:59 Intake Total 200 1450 Output Total 400 1500 Balance -200 -50 Result Diagrams: 01/30/19 02:14 01/30/19 02:14 Hospitalist ROS - Review of Systems Respiratory: denies: cough, dry, shortness of breath, hemoptysis, SOB with excertion, pleuritic pain, sputum, wheezing, other Cardiovascular: denies: chest pain, palpitations, orthopnea, paroxysmal noc. dyspnea, edema, light headedness, other Gastrointestinal: denies: nausea, vomiting, abdominal pain, diarrhea, constipation, melena, hematochezia, other - Medication Medications: Active Medications Generic Name Dose Route Start Last Admin Trade Name Freq PRN Reason Stop Dose Admin Cholecalciferol 1,000 units 01/30/19 09:00 01/31/19 09:53 Vitamin D3 PO 1,000 units DAILY DIANA Administration Clonidine 0.1 mg 01/30/19 01:46 01/30/19 02:01 Catapres PO 0.1 mg Q4H PRN Administration SBP Greater Than 170 Clonidine 0.1 mg 01/30/19 09:00 01/31/19 15:17 Catapres PO 0.1 mg TID DIANA Administration Enoxaparin Sodium 60 mg 01/30/19 21:00 01/31/19 09:54 Lovenox SC 60 mg 0900,2100 DIANA Administration Furosemide 40 mg 01/30/19 09:00 01/31/19 09:54 Lasix PO 40 mg DAILY DIANA Administration Hydralazine HCl 50 mg 01/30/19 09:00 01/31/19 15:17 Apresoline PO 50 mg TID DIANA Administration Isosorbide Mononitrate 30 mg 01/30/19 09:00 01/31/19 09:55 Imdur Er PO 30 mg DAILY DIANA Administration Lisinopril 5 mg 01/30/19 09:00 01/31/19 09:55 Zestril PO 5 mg BID DIANA Administration Nifedipine 60 mg 01/30/19 09:00 01/31/19 09:55 Procardia Xl PO 60 mg BID DIANA Administration Pantoprazole Sodium 40 mg 01/30/19 09:00 01/31/19 09:54 Protonix PO 40 mg DAILY DIANA Administration Pravastatin Sodium 40 mg 01/30/19 21:00 01/30/19 20:53 Pravachol PO 40 mg HS DIANA Administration Sodium Chloride 10 ml 01/30/19 09:00 01/31/19 09:55 Flush - Normal Saline IVF 10 ml Q12HR DIANA Administration - Exam Neck: negative: supple, symmetric, no JVD, no thyromegaly, no lymphadenopathy, no carotid bruit, JVD Heart: negative: RRR, no murmur, no gallops, no rubs, normal peripheral pulses, irregular, diminshed peripheral pulses, murmur present, II/IV, III/IV Respiratory: negative: CTAB, no wheezes, no rales, no ronchi, normal chest expansion, no tachypnea, normal percussion, rales, rhonchi, tachypneic, wheezes Hosp A/P (1) Dizziness Code(s): R42 - DIZZINESS AND GIDDINESS Status: Acute (2) Afib Code(s): I48.91 - UNSPECIFIED ATRIAL FIBRILLATION Status: Acute (3) Sinus pause Code(s): I45.5 - OTHER SPECIFIED HEART BLOCK Status: Acute - Plan will get cardiology to see pt. she has no more dizziness. she did have 2 pauses not sure if medication related? 01/31 possible aflutter when she ambulates her hr goes up to 130's, EP consulted.
[2019-01-31] MEDS ORDERED: Lidocaine 1% (PF) 30 ML VIAL ONE (17:29)
[2019-01-31] MEDS ORDERED: Heparin 10,000 UNITS/1 ML VIAL ONE (17:30)
[2019-01-31] MEDS ORDERED: Propofol 1,000 MG/100 ML VIAL IV ONE (18:47)
[2019-01-31] MEDS ORDERED: Amiodarone 150 MG/3 ML VIAL ONE (19:13)
[2019-01-31] MEDS: Pravastatin Sodium 40 MG TAB PO SCH (21:58)
--- NOTE | 2019-01-31 22:49 | OP ---
DATE OF PROCEDURE: 01/31/2019 PROCEDURES PERFORMED: Electrophysiology study and radiofrequency ablation. ADDITIONAL REFERRING PHYSICIAN: Alison Castillo MD REASON FOR PROCEDURE: Ms. Myles is an 78-year-old woman who presents with palpitations, tachycardia, EKG suggestive of both atrial fibrillation and atrial flutter with rapid rates prompting diltiazem administration, atrial bradycardic and pause over 3.5 seconds seen. 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 DESCRIPTION OF PROCEDURE: The patient received propofol by Anesthesia specialist. The right femoral venous area was prepped, draped, and anesthetized with subcutaneous lidocaine. After adequate level of sedation achieved, the right femoral vein was accessed under ultrasound guidance x2. Two 8-Persian short sheath was introduced through which a decapolar catheter was advanced to the right atrium, right ventricle, His bundle, and CS position. Also, pacing, mapping, and recording were performed in each location including spacing the left atrium from the CS. The following findings were noted. The baseline rhythm was sinus rhythm. The RR interval was 760 milliseconds, NC 150 milliseconds, QRS 71 milliseconds, QTC 47 milliseconds, HV was 52 milliseconds. AV Wenckebach cycle length was 350 milliseconds with concentric retrograde VA conduction seen during VA pacing was at 330 milliseconds. Retrograde Wenckebach noted. Burst atrial pacing the atrium did not induce arrhythmias. As a typical appearing atrial flutter on record, decision was made to proceed with cavotricuspid isthmus ablation. CTI ablation was performed during proximal CS pacing and we were able to delay the transisthmus time to 150 milliseconds. During the ablation, atrial fibrillation developed though, which sustained. IV amiodarone was given and cardioversion was performed to achieve sinus rhythm. Dopamine was administered to ascertain cavotricuspid isthmus block per se. At the end of the case, catheters were pulled in the seed laboratory technician. Cardiac silhouette did not change and hemostasis was obtained with Vascade closure device. CONCLUSION: 1. Successful cavotricuspid isthmus ablation. 2. Residual atrial fibrillation is still spontaneously induced and cardioverted. 3. Normal sinus kartik and AV kartik function. 4. No evidence of accessory pathway. PLAN: Continue to monitor for recurrent arrhythmias. Can consider antiarrhythmic agents. Any further bradycardia occur, pacing therapy is an option. Radiofrequency ablation for pulmonary venous isolation procedure, also a potential long-term possibility. Job ID: [id number]
[2019-02-01] MEDS: cloNIDine 0.1 MG TAB PO SCH ×3 (09:10→21:00)
[2019-02-01] MEDS: hydrALAZINE 25 MG TAB PO SCH ×3 (09:11→21:01)
[2019-02-01] MEDS: Enoxaparin Sodium 60 MG/0.6 ML SYRINGE SC SCH (09:11)
[2019-02-01] MEDS: Isosorbide Mononitrate (ER) 30 MG TAB PO SCH (09:11)
[2019-02-01] MEDS: Furosemide 40 MG TAB PO SCH (09:11)
[2019-02-01] MEDS: Lisinopril 5 MG TAB PO SCH ×2 (09:11→21:01)
[2019-02-01] MEDS: NIFEdipine XL 60 MG TAB PO SCH ×2 (09:11→21:00)
[2019-02-01 09:35] LABS: #Eosinphils 0.1 thou/uL (0.0-0.7); #Monocytes 0.5 thou/uL (0.11-0.59); #Neutrophils 5.3 thou/uL (1.40-6.50); %Basophils 0.6 % (0.0-1.0); %Eosinophils 0.6 % (0.0-10.0); %Lymphocytes 25.6 % (21.0-51.0); %Monocytes 6.6 % (0.0-10.0); %Neutrophils 66.6 % (42.0-75.0); Hemoglobin 12.4 g/dL (12.0-16.0); Mean Corpuscular HGB CONC 31.8 g/dL (32.0-36.0); Mean Corpuscular Hemoglobin 25.8 pg (27.0-31.0); Mean Corpuscular Volume 81.1 fL (78.0-98.0); Platelet Count 332 thou/uL (130-400); RBC Distribution Width 12.6 % (11.5-14.5); White Blood Cell (WBC) Count 7.9 thou/uL (4.8-10.8)
[2019-02-01 10:01] LABS: Anion Gap 13 mmol/L (10-20); BUN (Urea Nitrogen) 18 mg/dL (9.8-20.1); Calc. Creatinine Clearance 37 mL/min (70-130); Calcium 9.5 mg/dL (7.8-10.44); Carbon Dioxide 25 mmol/L (23-31); Chloride 106 mmol/L (98-107); Estimated GFR-MDRD 52; Glucose 154 mg/dL (83-110); Potassium 3.2 mmol/L (3.5-5.1); Sodium 141 mmol/L (136-145)
[2019-02-01] MEDS ORDERED: Dronedarone HCl 400 MG TAB PO SCH (13:00)
--- NOTE | 2019-02-01 14:47 | PDOC.CPN ---
- Subjective Date: 02/01/19 Time: 08:00 Interval history: EP PROGRESS NOTE: 02/01/19 Follow up after CTI/ atrial flutter ablation. Feels well today. occasional heart racing/ palpitations from AFib continue. NO passing out or dizziness. NO stroke like symptoms - Review of Systems General: denies: fever/chills, weight/appetite/sleep changes, night sweats, fatigue Respiratory: denies: cough, congestion, shortness of breath, exercise intolerance Cardiovascular: reports: palpitation. denies: chest pain, edema, paroxysmal nocturnal dyspnea, orthopnea Gastrointestinal: denies: nausea, vomiting, diarrhea, constipation, abd pain, GI bleeding Musculoskeletal: denies: pain, tenderness, stiffness, swelling, arthritis/ arthralgias Neurological: denies: numbness, syncope, seizure, weakness - Objective Allergies/Adverse Reactions: Allergies Allergy/AdvReac Type Severity Reaction Status Date / Time No Known Allergies Allergy Verified 01/30/19 01:39 Visit Medications: Current Medications Acetaminophen (Tylenol) 1,000 mg PO Q6H PRN PRN Reason: Mild Pain (1-3) Cholecalciferol (Vitamin D3) 1,000 units PO DAILY [facility] Last Admin: 02/01/19 09:10 Dose: 1,000 units Clonidine (Catapres) 0.1 mg PO Q4H PRN PRN Reason: SBP Greater Than 170 Last Admin: 01/30/19 02:01 Dose: 0.1 mg Clonidine (Catapres) 0.1 mg PO TID [facility] Last Admin: 02/01/19 14:38 Dose: 0.1 mg [facility] ([facility] Enoxaparin Sodium (Lovenox) 60 mg SC 0900 [facility] Furosemide (Lasix) 40 mg PO DAILY [facility] Last Admin: 02/01/19 09:11 Dose: 40 mg Hydralazine HCl (Apresoline) 10 mg SLOW IVP Q4H PRN PRN Reason: SBP > 180 and HR < 70 Hydralazine HCl (Apresoline) 50 mg PO TID [facility] Last Admin: 02/01/19 14:38 Dose: 50 mg Isosorbide Mononitrate (Imdur Er) 30 mg PO DAILY [facility] Last Admin: 02/01/19 09:11 Dose: 30 mg Lisinopril (Zestril) 5 mg PO BID [facility] Last Admin: 02/01/19 09:11 Dose: 5 mg Nifedipine (Procardia Xl) 60 mg PO BID [facility] Last Admin: 02/01/19 09:11 Dose: 60 mg Ondansetron HCl (Zofran Odt) 4 mg PO Q6H PRN PRN Reason: Nausea/Vomiting Ondansetron HCl (Zofran) 4 mg IVP Q6H PRN PRN Reason: Nausea/Vomiting Pantoprazole Sodium (Protonix) 40 mg PO DAILY [facility] Last Admin: 02/01/19 09:11 Dose: 40 mg Pravastatin Sodium (Pravachol) 40 mg PO HS [facility] Last Admin: 01/31/19 21:58 Dose: 40 mg Sodium Chloride (Flush - Normal Saline) 10 ml IVF Q12HR [facility] Last Admin: 02/01/19 09:11 Dose: Not Given Sodium Chloride (Flush - Normal Saline) 10 ml IVF PRN PRN PRN Reason: Saline Flush Tramadol HCl (Ultram) 50 mg PO BID PRN PRN Reason: Pain Vital Signs & Weight: Vital Signs Temp Pulse Resp BP BP Pulse Ox 02/01/19 11:50 98.5 F 87 20 157/76 H 97 02/01/19 07:28 98.0 F 80 14 159/70 H 99 02/01/19 04:24 76 18 152/69 H 100 Weight 139 lb 1.6 oz - Physical Exam General: alert & oriented x3, appears well, no apparent distress HEENT: mucus membranes moist, normocephaly Neck: supple neck, midline trachea, no JVD/HJR, no masses, no bruit, no lymphadenopathy, no thromegaly Cardiac: no murmur, irregularly regular Lungs: clear to auscultation, normal breath sounds, normal exam, no wheeze, rales, rhonchi Neuro: cranial nerve 2-12 intact, grossly intact, no lateralizing findings Abdomen: unremarkable, active bowel sounds, soft, no masses Extremities: no cyanosis, no clubbing, no edema Skin: other (right groin site stable without hematoma) - Labs Result Diagrams: 02/01/19 09:23 02/01/19 09:23 Troponin/CKMB Troponin I Less than 0.010 ng/mL (< 0.028) 01/30/19 02:14 - Telemetry Supraventricular conduction: atrial fibrillation (paroxysmal A Fib and atypical flutter seen. in SR now) - Assessment/Plan Assessment/Plan: 1. Atrial arrhythmias, symptomatic -s/p CTI flutter ablation -also seeing Left atrial arrhythmias of AFib and Atypical flutter -start multaq 2. Sinus node dysfunction -two pauses 3.5 seconds seen with recent IV dilt and lopressor. - Abnormal SNRT during EPS - monitor for further pauses or symptomatic bradycardia for possible PPM 3. CHADS2-VASC: 5 -continue lovenox for now. Eliquis 5mg PO BID [facility] Continues to have paroxysmal atrial fib/atypical flutter with RVR. Pako in 40s with conversion to SR then quickly returns to 70-90bpm range. Started multaq. POssible PPM tomorrow if pauses or SSS evident.
[2019-02-01] MEDS: Dronedarone HCl 400 MG TAB PO SCH (17:29)
[2019-02-01] MEDS: Pravastatin Sodium 40 MG TAB PO SCH (21:01)
[2019-02-02 05:25] LABS: #Eosinphils 0.1 thou/uL (0.0-0.7); #Lymphocytes 1.9 thou/uL (1.20-3.40); #Monocytes 0.9 thou/uL (0.11-0.59); #Neutrophils 4.2 thou/uL (1.40-6.50); %Basophils 0.5 % (0.0-1.0); %Eosinophils 1.4 % (0.0-10.0); %Monocytes 12.5 % (0.0-10.0); %Neutrophils 58.7 % (42.0-75.0); Hemoglobin 11.1 g/dL (12.0-16.0); Mean Corpuscular HGB CONC 31.7 g/dL (32.0-36.0); Mean Corpuscular Hemoglobin 25.9 pg (27.0-31.0); Mean Corpuscular Volume 81.7 fL (78.0-98.0); Mean Platelet Volume 7.3 fL (7.4-10.4); Platelet Count 284 thou/uL (130-400); RBC Distribution Width 12.6 % (11.5-14.5); Red Blood Cell (RBC) Count 4.27 mill/uL (4.20-5.40); White Blood Cell (WBC) Count 7.2 thou/uL (4.8-10.8)
[2019-02-02 05:44] LABS: Anion Gap 10 mmol/L (10-20); BUN (Urea Nitrogen) 21 mg/dL (9.8-20.1); Calc. Creatinine Clearance 37 mL/min (70-130); Calcium 9.2 mg/dL (7.8-10.44); Carbon Dioxide 26 mmol/L (23-31); Chloride 109 mmol/L (98-107); Estimated GFR-MDRD 52; Glucose 101 mg/dL (83-110); Potassium 3.3 mmol/L (3.5-5.1); Sodium 142 mmol/L (136-145)
[2019-02-02] MEDS ORDERED: Enoxaparin Sodium 60 MG/0.6 ML SYRINGE SC SCH (09:00)
--- NOTE | 2019-02-02 09:12 | PDOC.HOSPP ---
- Subjective Encounter Date: 02/01/19 Encounter Time: 11:30 Subjective: pt up in bed no dizziness. - Objective Vital Signs & Weight: Vital Signs (12 hours) Temp Pulse Resp BP BP Pulse Ox 02/02/19 07:25 97.6 F 68 16 148/67 H 98 02/02/19 03:20 62 18 146/65 H 100 02/01/19 23:05 98.4 F 61 15 140/61 100 Weight Weight 139 lb 1.6 oz I&O: 02/01/19 02/02/19 02/03/19 06:59 06:59 06:59 Intake Total 1909 Balance 1909 Result Diagrams: 02/02/19 04:49 02/02/19 04:49 Hospitalist ROS - Review of Systems Respiratory: denies: cough, dry, shortness of breath, hemoptysis, SOB with excertion, pleuritic pain, sputum, wheezing, other Cardiovascular: denies: chest pain, palpitations, orthopnea, paroxysmal noc. dyspnea, edema, light headedness, other Gastrointestinal: denies: nausea, vomiting, abdominal pain, diarrhea, constipation, melena, hematochezia, other - Medication Medications: Active Medications Generic Name Dose Route Start Last Admin Trade Name Freq PRN Reason Stop Dose Admin Cholecalciferol 1,000 units 01/30/19 09:00 02/01/19 09:10 Vitamin D3 PO 1,000 units DAILY [facility] Administration Clonidine 0.1 mg 01/30/19 01:46 01/30/19 02:01 Catapres PO 0.1 mg Q4H PRN Administration SBP Greater Than 170 Clonidine 0.1 mg 01/30/19 09:00 02/01/19 21:00 Catapres PO 0.1 mg TID [facility] Administration Dronedarone 400 mg 02/01/19 17:00 02/01/19 17:29 Multaq PO 400 mg BID-WM [facility] Administration Furosemide 40 mg 01/30/19 09:00 02/01/19 09:11 Lasix PO 40 mg DAILY [facility] Administration Hydralazine HCl 50 mg 01/30/19 09:00 02/01/19 21:01 Apresoline PO 50 mg TID [facility] Administration Isosorbide Mononitrate 30 mg 01/30/19 09:00 02/01/19 09:11 Imdur Er PO 30 mg DAILY [facility] Administration Lisinopril 5 mg 01/30/19 09:00 02/01/19 21:01 Zestril PO 5 mg BID [facility] Administration Nifedipine 60 mg 01/30/19 09:00 02/01/19 21:00 Procardia Xl PO 60 mg BID [facility] Administration Pantoprazole Sodium 40 mg 01/30/19 09:00 02/01/19 09:11 Protonix PO 40 mg DAILY [facility] Administration Pravastatin Sodium 40 mg 01/30/19 21:00 02/01/19 21:01 Pravachol PO 40 mg HS [facility] Administration Sodium Chloride 10 ml 01/30/19 09:00 02/01/19 21:02 Flush - Normal Saline IVF 10 ml Q12HR [facility] Administration - Exam Neck: negative: supple, symmetric, no JVD, no thyromegaly, no lymphadenopathy, no carotid bruit, JVD Heart: negative: RRR, no murmur, no gallops, no rubs, normal peripheral pulses, irregular, diminshed peripheral pulses, murmur present, II/IV, III/IV Respiratory: negative: CTAB, no wheezes, no rales, no ronchi, normal chest expansion, no tachypnea, normal percussion, rales, rhonchi, tachypneic, wheezes Hosp A/P (1) Dizziness Code(s): R42 - DIZZINESS AND GIDDINESS Status: Acute (2) Afib Code(s): I48.91 - UNSPECIFIED ATRIAL FIBRILLATION Status: Acute (3) Sinus pause Code(s): I45.5 - OTHER SPECIFIED HEART BLOCK Status: Acute - Plan will get cardiology to see pt. she has no more dizziness. she did have 2 pauses not sure if medication related? 01/31 possible aflutter when she ambulates her hr goes up to 130's, EP consulted. 02/01 plan to watch her overnight and see if she has any pauses if so then she will need pacemaker. s/p cavo tricuspid isthmus ablation on01/31 on lovonox will change to eliquis.
[2019-02-02] MEDS: Dronedarone HCl 400 MG TAB PO SCH (09:33)
[2019-02-02] MEDS: cloNIDine 0.1 MG TAB PO SCH (09:33)
[2019-02-02] MEDS: NIFEdipine XL 60 MG TAB PO SCH (09:34)
[2019-02-02] MEDS: Isosorbide Mononitrate (ER) 30 MG TAB PO SCH (09:34)
[2019-02-02] MEDS: Furosemide 40 MG TAB PO SCH (09:34)
[2019-02-02] MEDS: Lisinopril 5 MG TAB PO SCH (09:34)
[2019-02-02] MEDS: hydrALAZINE 25 MG TAB PO SCH (09:34)
--- NOTE | 2019-02-02 11:15 | PDOC.CPN ---
- Subjective Date: 02/02/19 Time: 11:14 Interval history: EP PROGRESS NOTE: 02/02/19 Follow up after CTI/ atrial flutter ablation. Feels well today. NO passing out or dizziness. NO stroke like symptoms. Palpitations better overnight and into AM - Review of Systems General: denies: fever/chills, weight/appetite/sleep changes, night sweats, fatigue Respiratory: denies: cough, congestion, shortness of breath, exercise intolerance Cardiovascular: reports: palpitation. denies: chest pain, edema, paroxysmal nocturnal dyspnea, orthopnea Gastrointestinal: denies: nausea, vomiting, diarrhea, constipation, abd pain, GI bleeding Musculoskeletal: denies: pain, tenderness, stiffness, swelling, arthritis/ arthralgias Neurological: denies: numbness, syncope, seizure, weakness - Objective Allergies/Adverse Reactions: Allergies Allergy/AdvReac Type Severity Reaction Status Date / Time No Known Allergies Allergy Verified 01/30/19 01:39 Visit Medications: Current Medications Acetaminophen (Tylenol) 1,000 mg PO Q6H PRN PRN Reason: Mild Pain (1-3) Cholecalciferol (Vitamin D3) 1,000 units PO DAILY [facility] Last Admin: 02/02/19 09:33 Dose: 1,000 units Clonidine (Catapres) 0.1 mg PO Q4H PRN PRN Reason: SBP Greater Than 170 Last Admin: 01/30/19 02:01 Dose: 0.1 mg Clonidine (Catapres) 0.1 mg PO TID [facility] Last Admin: 02/02/19 09:33 Dose: 0.1 mg Dronedarone (Multaq) 400 mg PO BID[facility] Last Admin: 02/02/19 09:33 Dose: 400 mg Enoxaparin Sodium (Lovenox) 60 mg SC 0900 [facility] Furosemide (Lasix) 40 mg PO DAILY [facility] Last Admin: 02/02/19 09:34 Dose: 40 mg Hydralazine HCl (Apresoline) 10 mg SLOW IVP Q4H PRN PRN Reason: SBP > 180 and HR < 70 Hydralazine HCl (Apresoline) 50 mg PO TID [facility] Last Admin: 02/02/19 09:34 Dose: 50 mg Isosorbide Mononitrate (Imdur Er) 30 mg PO DAILY [facility] Last Admin: 02/02/19 09:34 Dose: 30 mg Lisinopril (Zestril) 5 mg PO BID [facility] Last Admin: 02/02/19 09:34 Dose: 5 mg Nifedipine (Procardia Xl) 60 mg PO BID [facility] Last Admin: 02/02/19 09:34 Dose: 60 mg Ondansetron HCl (Zofran Odt) 4 mg PO Q6H PRN PRN Reason: Nausea/Vomiting Ondansetron HCl (Zofran) 4 mg IVP Q6H PRN PRN Reason: Nausea/Vomiting Pantoprazole Sodium (Protonix) 40 mg PO DAILY [facility] Last Admin: 02/02/19 09:34 Dose: 40 mg Pravastatin Sodium (Pravachol) 40 mg PO HS [facility] Last Admin: 02/01/19 21:01 Dose: 40 mg Sodium Chloride (Flush - Normal Saline) 10 ml IVF Q12HR [facility] Last Admin: 02/02/19 09:34 Dose: Not Given Sodium Chloride (Flush - Normal Saline) 10 ml IVF PRN PRN PRN Reason: Saline Flush Tramadol HCl (Ultram) 50 mg PO BID PRN PRN Reason: Pain Vital Signs & Weight: Vital Signs Temp Pulse Resp BP BP Pulse Ox 02/02/19 07:32 98 02/02/19 07:25 97.6 F 68 16 148/67 H 98 02/02/19 03:20 62 18 146/65 H 100 Weight 139 lb 1.6 oz - Physical Exam General: alert & oriented x3, appears well, no apparent distress HEENT: mucus membranes moist, normocephaly Neck: supple neck, midline trachea, no JVD/HJR, no masses, no bruit, no lymphadenopathy, no thromegaly Cardiac: regular rate and rhythm, no murmur, regular rate, regular rhythm Lungs: clear to auscultation, normal breath sounds, normal exam, no wheeze, rales, rhonchi - Labs Result Diagrams: 02/02/19 04:49 02/02/19 04:49 Troponin/CKMB Troponin I Less than 0.010 ng/mL (< 0.028) 01/30/19 02:14 - Telemetry Sinus rhythms and dysrhythmias: sinus rhythm (occasional Afib/ atypical flutter episodes) - Assessment/Plan Assessment/Plan: 1. Atrial arrhythmias, symptomatic -s/p CTI flutter ablation -also seeing Left atrial arrhythmias of AFib and Atypical flutter -started multaq 02/01 then AF settled down significantly. 2. Sinus node dysfunction - two pauses 3.5 seconds seen with recent IV dilt and lopressor. - Abnormal SNRT during EPS - monitor for further pauses or symptomatic bradycardia for possible PPM 3. CHADS2-VASC: 5 -resume Eliquis 5mg PO BID long-term paroxysmal atrial fib/atypical flutter has quieted down with addition of multaq. OK for DC home. Will see in 6 weeks. Patient will notify [facility] of any symptoms consistent with bradycardia.
[2019-02-02] MEDS ORDERED: Potassium Chloride 20 MEQ TAB PO SCH (11:45)
[2019-02-02 12:07] VITALS: BP 132/60; TEMP 97.4
--- NOTE | 2019-02-03 21:00 | DIS ---
DATE OF ADMISSION: 01/29/2019 DATE OF DISCHARGE: 02/02/2019 DISCHARGE DIAGNOSES: As of the followin. Dizziness. 2. Tachy-destin syndrome. 3. Atrial fibrillation. 4. Sinus pause. HOSPITAL COURSE: The patient is a very pleasant 78-year-old female, who initially presented to the hospital on 01/30 with complaints of dizziness. She was found to be tachycardic in atrial fibrillation with rapid ventricular response. She was given IV Cardizem and beta christian, which controlled her heart rate and she was admitted to the hospital. The patient then overnight had two episodes of 3.2 second pauses at which time it was unclear. This was secondary to the medications that was given the night before versus an underlying cause. Cardiology was consulted. The patient underwent an echocardiogram which indicated an EF of 55% to 60% with no significant valvular dysfunction. She does have mildly enlarged right atrium and moderately dilated left atrium. At this time, given her tachy-destin syndrome, she was also found to have tachy-destin and she was not on any beta blockers except for the ones that were given to her in the ER. She was seen by Electrophysiology and underwent cardiac ablation. She did undergo successful cavo-tricuspid isthmus ablation. The patient was in sinus rhythm. She was put initially on Lovenox and was started back on Eliquis. She was washed the day after just to make sure she did not have any pauses, which she did not, and she was discharged home. HOME MEDICATIONS: Her home medications will be as the followin. Eliquis 5 mg twice a day. 2. Lasix 40 mg daily. 3. Isosorbide 30 mg daily. 4. Clonidine 0.1 t.i.d. 5. Pravastatin 40 mg at bedtime. 6. Protonix 40 mg daily. 7. Nifedipine 60 mg b.i.d. 8. Lisinopril 5 mg daily. 9. Multaq 400 mg b.i.d. PHYSICAL EXAMINATION: VITAL SIGNS: Temperature of 97.6, 68, 16, 98% on room air, and 132/60. GENERAL: She is awake, alert, and oriented x3. Does not appear in distress. CV: S1, S2 present. No murmurs, rubs, or gallops. ABDOMEN: Soft and nontender. Bowel sounds are present x2. Again, she will be discharged home. She will follow up with her primary and also with Cardiology. Job ID: [id number]
--- NOTE | 2019-02-04 16:15 | EKG ---
Test Reason : POST OP Blood Pressure : / mmHG Vent. Rate : 072 BPM Atrial Rate : 088 BPM P-R Int : 000 ms QRS Dur : 074 ms QT Int : 420 ms P-R-T Axes : 000 046 -34 degrees QTc Int : 459 ms Atrial fibrillation Nonspecific T wave abnormality , probably digitalis effect Abnormal ECG When compared with ECG of 29-JAN-2019 20:19, (Unconfirmed) Vent. rate has decreased BY 40 BPM Nonspecific T wave abnormality, worse in Anterior leads Confirmed by DR. Ean KAPLAN ([id number]) on 02/04/2019 4:15:17 PM Referred By: Confirmed By:DR. Ean KAPLAN
== END 2019-02-02 13:18 | disposition home or self-care (01) | DRG 274 ==
LOC: ERS 19:22 → OBSVTOIN 22:50 → INTOOBSV 22:50 → 2SW 22:50
PROVIDERS: ADMIT Family Medicine; ATTEND Family Medicine
PROC: 02583ZZ Destruction of Conduction Mechanism, Percutaneous Approach (ICD-10-PCS; principal; 2019-02-02)
PROC: 4A0234Z Measurement of Cardiac Electrical Activity, Percutaneous Approach (ICD-10-PCS; 2019-02-02)
PROC: 4A023FZ Measurement of Cardiac Rhythm, Percutaneous Approach (ICD-10-PCS; 2019-02-02)
PROC: 02K83ZZ Map Conduction Mechanism, Percutaneous Approach (ICD-10-PCS; 2019-02-02)
PROC: 5A2204Z Restoration of Cardiac Rhythm, Single (ICD-10-PCS; 2019-02-02)
DX: I48.0 Paroxysmal atrial fibrillation (principal); I50.32 Chronic diastolic (congestive) heart failure; I13.0 Hypertensive heart and chronic kidney disease with heart failure and stage 1 through stage 4 chronic kidney disease, or unspecified chronic kidney disease; I16.0 Hypertensive urgency; N18.3 Chronic kidney disease, stage 3 (moderate); I25.10 Atherosclerotic heart disease of native coronary artery without angina pectoris; E78.5 Hyperlipidemia, unspecified; I48.20 Chronic atrial fibrillation, unspecified; E78.00 Pure hypercholesterolemia, unspecified; F41.9 Anxiety disorder, unspecified; I49.5 Sick sinus syndrome; I48.92 Unspecified atrial flutter; Z90.49 Acquired absence of other specified parts of digestive tract; Z90.710 Acquired absence of both cervix and uterus; Z79.899 Other long term (current) drug therapy; Z79.01 Long term (current) use of anticoagulants
CPT/HCPCS: 36415; 36416; 70450; 71045; 76942; 80048; 80053; 83690; 83735; 84443; 84484; 85007; 85025; 85027; 92960; 93005; 93010; 93306; 93613; 93621; 93623; 93653; 94760; 96374; C1732; C1769; J0282; J1644; J1650; J2001; J2704; J3490

== ENCOUNTER 2019-05-10 19:11 | Emergency (ER) | payer MEDICARE ==
[2019-05-10 19:49] LABS: #Basophils 0.1 thou/uL (0.0-0.2); #Eosinphils 0.1 thou/uL (0.0-0.7); #Neutrophils 4.1 thou/uL (1.40-6.50); %Basophils 1.2 % (0.0-1.0); %Eosinophils 1.2 % (0.0-10.0); %Monocytes 11.6 % (0.0-10.0); Hemoglobin 11.9 g/dL (12.0-16.0); Mean Corpuscular HGB CONC 32.4 g/dL (32.0-36.0); Mean Corpuscular Hemoglobin 26.4 pg (27.0-31.0); Mean Corpuscular Volume 81.3 fL (78.0-98.0); Mean Platelet Volume 7.4 fL (7.4-10.4); Platelet Count 334 thou/uL (130-400); RBC Distribution Width 12.4 % (11.5-14.5); Red Blood Cell (RBC) Count 4.53 mill/uL (4.20-5.40); White Blood Cell (WBC) Count 8.3 thou/uL (4.8-10.8)
--- NOTE | 2019-05-10 19:53 | RAD ---
XR Chest 1 View Portable HISTORY: Chest pain COMPARISON: 11/14/2017 FINDINGS: The heart size is at upper limits of normal. The aorta is tortuous The lungs are well expan ded without focal areas of consolidation, pneumothorax or pleural effusions. IMPRESSION: No radiographic evidence of acute cardiopulmonary process.
[2019-05-10 20:10] LABS: ALT (SGPT) Less than 7 U/L (8-55); AST (SGOT) 15 U/L (5-34); Albumin 4.7 g/dL (3.4-4.8); Alkaline Phosphatase 137 U/L (40-110); Anion Gap 15 mmol/L (10-20); BUN (Urea Nitrogen) 25 mg/dL (9.8-20.1); Bilirubin, Total 0.3 mg/dL (0.2-1.2); CK (CPK) 54 U/L (29-168); Calc. Creatinine Clearance 0 mL/min (70-130); Carbon Dioxide 28 mmol/L (23-31); Chloride 102 mmol/L (98-107); Estimated GFR-MDRD 39; Globulin 3.5 g/dL (2.4-3.5); Glucose 117 mg/dL (83-110); Protein, Total 8.2 g/dL (6.0-8.3); Sodium 141 mmol/L (136-145)
[2019-05-10] MEDS ORDERED: Labetalol HCl 100 MG/20 ML VIAL ONE (20:11)
== END 2019-05-10 22:17 | disposition home or self-care (01) ==
LOC: ERS 19:11
DX: I10 Essential (primary) hypertension (principal); R55 Syncope and collapse; M19.90 Unspecified osteoarthritis, unspecified site; K21.9 Gastro-esophageal reflux disease without esophagitis; I48.91 Unspecified atrial fibrillation; Z79.899 Other long term (current) drug therapy; Z79.01 Long term (current) use of anticoagulants
CPT/HCPCS: 36415; 71045; 80053; 82550; 84484; 85025; 93005; 96374

== ENCOUNTER 2019-08-01 07:48 | Outpatient (CLI) | payer MEDICARE ==
--- NOTE | 2019-08-01 08:35 | MMO ---
Bilateral MAMMO Bilat Screen [facility]. CLINICAL HISTORY: Patient is 79 years old and is seen for screening. The patient has no family history of breast cancer. The patient has no personal history of cancer. The patient has a history of left Excisional Biopsy in 1969 - benign. VIEWS: The views performed were: bilateral craniocaudal with tomosynthesis and bilateral mediolateral oblique with tomosynthesis. FILMS COMPARED: The present examination has been compared to prior imaging studies performed at [facility] on 06/09/2015, 06/09/2016, 06/28/2017 and 06/29/2018. This study has been interpreted with the assistance of computer-aided detection. MAMMOGRAM FINDINGS: The breasts are heterogeneously dense, which could obscure a lesion on mammography. There are stable benign appearing calcifications seen in both breasts. There are also vascular calcifications. Nodularity is stable. There are no suspicious masses, suspicious calcifications, or new areas of architectural distortion. IMPRESSION: THERE IS NO MAMMOGRAPHIC EVIDENCE OF MALIGNANCY. A ROUTINE FOLLOW-UP MAMMOGRAM IN 1 YEAR IS RECOMMENDED. THE RESULTS OF THIS EXAM WERE SENT TO THE PATIENT. ACR BI-RADS Category 2 - Benign finding MAMMOGRAPHY NOTE: 1. A negative mammogram report should not delay a biopsy if a dominant of clinically suspicious mass is present. 2. Approximately 10% to 15% of breast cancers are not detected by mammography. 3. Adenosis and dense breasts may obscure an underlying neoplasm. Reported by: DANIKA GARCIA MD Electonically Signed: [id number]
== END 2019-08-01 07:49 | disposition home or self-care (01) ==
LOC: BICMAMMO 07:48
PROVIDERS: ATTEND Internal Medicine
DX: Z12.31 Encounter for screening mammogram for malignant neoplasm of breast (principal); Z91.89 Other specified personal risk factors, not elsewhere classified
CPT/HCPCS: 77063; 77067

== ENCOUNTER 2020-03-07 14:09 | Outpatient (CLI) | payer MEDICARE ==
--- NOTE | 2020-03-07 14:29 | RAD ---
XR Knee Rt 4 View STANDARD HISTORY: Acute right knee pain FINDINGS: No fracture or dislocation is identified. Mild-moderate degenerative changes are present
== END 2020-03-07 14:10 | disposition home or self-care (01) ==
LOC: SCSRAD 14:09
PROVIDERS: ATTEND Physician Assistant
DX: M25.561 Pain in right knee (principal)

== ENCOUNTER 2020-08-04 08:25 | Outpatient (CLI) | payer MEDICARE | END 2020-08-04 08:26 | disposition home or self-care (01) | LOC: BICMAMMO 08:25 | PROVIDERS: ATTEND Internal Medicine | DX: Z12.31 Encounter for screening mammogram for malignant neoplasm of breast (principal) | CPT/HCPCS: 77063; 77067 ==

== ENCOUNTER 2020-08-11 22:40 | Observation (INO) | payer MEDICARE ==
[2020-08-11 23:06] LABS: #Basophils 0.1 thou/uL (0.0-0.2); #Eosinphils 0.1 thou/uL (0.0-0.7); #Lymphocytes 2.8 thou/uL (1.20-3.40); #Monocytes 0.8 thou/uL (0.11-0.59); #Neutrophils 3.7 thou/uL (1.40-6.50); %Basophils 1.5 % (0.0-1.0); %Eosinophils 0.8 % (0.0-10.0); %Lymphocytes 37.6 % (21.0-51.0); %Monocytes 11.1 % (0.0-10.0); %Neutrophils 49.1 % (42.0-75.0); Hemoglobin 10.5 g/dL (12.0-16.0); Mean Corpuscular HGB CONC 31.3 g/dL (32.0-36.0); Mean Corpuscular Hemoglobin 25.6 pg (27.0-31.0); Mean Corpuscular Volume 81.9 fL (78.0-98.0); Mean Platelet Volume 7.3 fL (7.4-10.4); Platelet Count 318 thou/uL (130-400); RBC Distribution Width 12.3 % (11.5-14.5); White Blood Cell (WBC) Count 7.5 thou/uL (4.8-10.8)
[2020-08-11] MEDS ORDERED: Aspirin 325 MG TAB ONE (23:16)
[2020-08-11 23:24] LABS: ALT (SGPT) Less than 7 U/L (8-55); AST (SGOT) 13 U/L (5-34); Alkaline Phosphatase 113 U/L (40-110); Anion Gap 13 mmol/L (10-20); BUN (Urea Nitrogen) 23 mg/dL (9.8-20.1); Bilirubin, Total 0.2 mg/dL (0.2-1.2); Calc. Creatinine Clearance 0 mL/min (70-130); Calcium 9.4 mg/dL (7.8-10.44); Carbon Dioxide 29 mmol/L (23-31); Chloride 99 mmol/L (98-107); Globulin 3.3 g/dL (2.4-3.5); Glucose 106 mg/dL (83-110); Protein, Total 7.3 g/dL (5.8-8.1); Sodium 137 mmol/L (136-145)
[2020-08-12] MEDS ORDERED: Nitroglycerin 2% Ointment 1 INCH/1 GM Packet ONE (00:20)
[2020-08-12] MEDS ORDERED: Acetaminophen 325 MG TAB PO PRN (00:52)
[2020-08-12] MEDS ORDERED: HYDROcodone/Acetaminophen 5/325 mg Tablet PO PRN (00:52)
[2020-08-12 01:14] VITALS: BMI 23.3
[2020-08-12] MEDS ORDERED: hydrALAZINE 20 MG/ML VIAL SLOW IVP PRN (01:22)
[2020-08-12 02:00] LABS: #Eosinphils 0.1 thou/uL (0.0-0.7); #Lymphocytes 2.5 thou/uL (1.20-3.40); #Monocytes 0.7 thou/uL (0.11-0.59); #Neutrophils 3.2 thou/uL (1.40-6.50); %Basophils 0.4 % (0.0-1.0); %Lymphocytes 38.1 % (21.0-51.0); %Monocytes 10.7 % (0.0-10.0); %Neutrophils 49.8 % (42.0-75.0); Mean Corpuscular HGB CONC 32.9 g/dL (32.0-36.0); Mean Corpuscular Hemoglobin 26.8 pg (27.0-31.0); Mean Corpuscular Volume 81.3 fL (78.0-98.0); Mean Platelet Volume 7.2 fL (7.4-10.4); Platelet Count 317 thou/uL (130-400); RBC Distribution Width 12.5 % (11.5-14.5); White Blood Cell (WBC) Count 6.5 thou/uL (4.8-10.8)
[2020-08-12 02:21] LABS: SARS-CoV-2 NAA Rapid Test Not Detected (NotDetected)
[2020-08-12 02:22] LABS: Troponin I Less than 0.010 ng/mL (< 0.028)
[2020-08-12 02:38] LABS: Anion Gap 13 mmol/L (10-20); BUN (Urea Nitrogen) 22 mg/dL (9.8-20.1); Calc. Creatinine Clearance 30 mL/min (70-130); Calcium 9.9 mg/dL (7.8-10.44); Carbon Dioxide 32 mmol/L (23-31); Chloride 101 mmol/L (98-107); Glucose 99 mg/dL (83-110); Potassium 3.7 mmol/L (3.5-5.1); Sodium 142 mmol/L (136-145)
[2020-08-12 05:53] LABS: Troponin I 0.012 ng/mL (< 0.028)
[2020-08-12] MEDS ORDERED: ADENOSINE 60 MG/20 ML VIAL ONE (08:44)
[2020-08-12] MEDS ORDERED: NIFEdipine XL 60 MG TAB PO SCH (09:00)
[2020-08-12] MEDS ORDERED: Furosemide 40 MG TAB PO SCH (09:00)
[2020-08-12] MEDS ORDERED: Aspirin Chewable 81 MG TAB PO SCH (09:00)
[2020-08-12] MEDS ORDERED: Apixaban 5 MG TAB PO SCH (09:00)
[2020-08-12] MEDS ORDERED: ISOSORBIDE MONONITRATE PO SCH (09:00)
[2020-08-12] MEDS ORDERED: Lisinopril 5 MG TAB PO SCH (09:00)
[2020-08-12] MEDS ORDERED: Carvedilol 6.25 MG TAB PO SCH (09:00)
[2020-08-12] MEDS: cloNIDine 0.1 MG TAB PO SCH ×2 (11:46→16:21)
[2020-08-12] MEDS: hydrALAZINE 25 MG TAB PO SCH ×2 (11:47→16:21)
[2020-08-12 16:00] VITALS: BP 169/72; TEMP 98.2
[2020-08-12] MEDS ORDERED: Dronedarone HCl 400 MG TAB PO SCH (17:00)
[2020-08-12] MEDS ORDERED: Atorvastatin Calcium 10 MG TAB PO SCH (21:00)
[2020-08-12] MEDS ORDERED: Latanoprost 0.005% Ophth Soln 2.5 ml Bottle EA EYE SCH (21:00)
[2020-08-12] MEDS ORDERED: tiZANidine HCl 4 MG TAB PO SCH (21:00)
== END 2020-08-12 16:20 | disposition home or self-care (01) ==
LOC: ERS 22:40 → 2SW 08-12 00:06
PROVIDERS: ADMIT Student in an Organized Health Care Education/Training Program; ATTEND Internal Medicine
DX: R07.89 Other chest pain (principal); I12.9 Hypertensive chronic kidney disease with stage 1 through stage 4 chronic kidney disease, or unspecified chronic kidney disease; N18.30 Chronic kidney disease, stage 3 unspecified; D63.1 Anemia in chronic kidney disease; I48.91 Unspecified atrial fibrillation; K21.9 Gastro-esophageal reflux disease without esophagitis; M19.90 Unspecified osteoarthritis, unspecified site; Z79.01 Long term (current) use of anticoagulants; Z79.899 Other long term (current) drug therapy; Z20.822 Contact with and (suspected) exposure to COVID-19
CPT/HCPCS: 71045; 78452; 80048; 80053; 84484 ×3; 85025 ×2; 93005; 93017; 94760; A9500; G0378 ×2; U0002; U0005; 36415; J0153

== ENCOUNTER 2021-05-09 11:00 | Inpatient (IN) | payer MEDICARE ==
[2021-05-09] MEDS ORDERED: Aspirin Chewable 81 MG TAB ONE (11:33)
[2021-05-09 11:58] LABS: #Basophils 0.1 thou/uL (0.0-0.2); #Eosinphils 0.1 thou/uL (0.0-0.7); #Lymphocytes 1.4 thou/uL (1.20-3.40); #Monocytes 0.5 thou/uL (0.11-0.59); #Neutrophils 3.4 thou/uL (1.40-6.50); %Basophils 1.2 % (0.0-1.0); %Eosinophils 0.9 % (0.0-10.0); %Lymphocytes 26.1 % (21.0-51.0); %Neutrophils 62.8 % (42.0-75.0); Hemoglobin 11.8 g/dL (12.0-16.0); Mean Corpuscular HGB CONC 31.4 g/dL (32.0-36.0); Mean Corpuscular Hemoglobin 26.3 pg (27.0-31.0); Mean Corpuscular Volume 83.8 fL (78.0-98.0); Platelet Count 328 thou/uL (130-400); RBC Distribution Width 12.7 % (11.5-14.5); Red Blood Cell (RBC) Count 4.49 mill/uL (4.20-5.40); White Blood Cell (WBC) Count 5.4 thou/uL (4.8-10.8)
[2021-05-09 12:18] LABS: ALT (SGPT) Less than 7 U/L (8-55); AST (SGOT) 17 U/L (5-34); Albumin 4.5 g/dL (3.4-4.8); Alkaline Phosphatase 93 U/L (40-110); Anion Gap 12 mmol/L (10-20); BUN (Urea Nitrogen) 25 mg/dL (9.8-20.1); Bilirubin, Total 0.3 mg/dL (0.2-1.2); Calc. Creatinine Clearance 0 mL/min (70-130); Calcium 9.7 mg/dL (7.8-10.44); Carbon Dioxide 33 mmol/L (23-31); Chloride 102 mmol/L (98-107); Globulin 3.2 g/dL (2.4-3.5); Glucose 122 mg/dL (83-110); Lipase 20 U/L (8-78); Potassium 3.9 mmol/L (3.5-5.1); Protein, Total 7.7 g/dL (5.8-8.1); Sodium 143 mmol/L (136-145)
[2021-05-09] MEDS ORDERED: Morphine 4 MG/ML VIAL ONE (13:00)
[2021-05-09] MEDS ORDERED: Nitroglycerin 0.4 MG TAB (25 Tab Bottle) SL PRN (13:48)
[2021-05-09] MEDS ORDERED: Acetaminophen 325 MG TAB PO PRN (13:56)
[2021-05-09] MEDS ORDERED: Furosemide 40 MG/4 ML VIAL SLOW IVP SCH (14:00)
[2021-05-09] MEDS ORDERED: Aspirin 325 MG TAB PO SCH (14:00)
[2021-05-09 14:02] VITALS: BMI 24.0
[2021-05-09 15:45] LABS: Magnesium 2.5 mg/dL (1.6-2.6)
[2021-05-09 15:49] LABS: Troponin I Less than 0.010 ng/mL (< 0.028)
[2021-05-09] MEDS: Carvedilol 6.25 MG TAB PO SCH (17:47)
[2021-05-09 18:25] LABS: Troponin I 0.011 ng/mL (< 0.028)
[2021-05-09 19:02] LABS: SARS-CoV-2 PCR by NAA Not Detected (NotDetected)
[2021-05-09] MEDS: hydrALAZINE 25 MG TAB PO SCH (20:05)
[2021-05-09] MEDS: Dronedarone HCl 400 MG TAB PO SCH (20:06)
[2021-05-09] MEDS: cloNIDine 0.1 MG TAB PO SCH (20:06)
[2021-05-09] MEDS: Atorvastatin Calcium 10 MG TAB PO SCH (20:06)
[2021-05-09] MEDS: Apixaban 2.5 MG TAB PO SCH (20:06)
[2021-05-09] MEDS: NIFEdipine XL 60 MG TAB PO SCH (20:06)
[2021-05-09] MEDS: Latanoprost 0.005% Ophth Soln 2.5 ml Bottle EA EYE SCH (20:07)
[2021-05-10 05:19] LABS: #Eosinphils 0.1 thou/uL (0.0-0.7); #Lymphocytes 1.9 thou/uL (1.20-3.40); #Monocytes 0.7 thou/uL (0.11-0.59); #Neutrophils 3.3 thou/uL (1.40-6.50); %Basophils 0.6 % (0.0-1.0); %Eosinophils 1.4 % (0.0-10.0); %Lymphocytes 31.8 % (21.0-51.0); %Neutrophils 54.3 % (42.0-75.0); Hemoglobin 10.5 g/dL (12.0-16.0); Mean Corpuscular HGB CONC 30.3 g/dL (32.0-36.0); Mean Corpuscular Hemoglobin 25.8 pg (27.0-31.0); Mean Corpuscular Volume 85.2 fL (78.0-98.0); Mean Platelet Volume 6.9 fL (7.4-10.4); Platelet Count 282 thou/uL (130-400); RBC Distribution Width 12.6 % (11.5-14.5); Red Blood Cell (RBC) Count 4.06 mill/uL (4.20-5.40); White Blood Cell (WBC) Count 6.1 thou/uL (4.8-10.8)
[2021-05-10 05:47] LABS: Anion Gap 13 mmol/L (10-20); BUN (Urea Nitrogen) 21 mg/dL (9.8-20.1); Calc. Creatinine Clearance 29 mL/min (70-130); Calcium 9.3 mg/dL (7.8-10.44); Carbon Dioxide 28 mmol/L (23-31); Cardiac Risk 1.7 (Less than 4.5); Chloride 107 mmol/L (98-107); Cholesterol 138 mg/dl (< 200 Desired); Glucose 96 mg/dL (83-110); HDL Cholesterol 79 mg/dL (>60 Neg Risk); LDL Cholesterol, Calculated 47 mg/dL; Potassium 3.8 mmol/L (3.5-5.1); Sodium 144 mmol/L (136-145); Triglycerides 60 mg/dL (Less than 150)
[2021-05-10] MEDS ORDERED: ADENOSINE 60 MG/20 ML VIAL ONE (08:49)
[2021-05-10] MEDS: cloNIDine 0.1 MG TAB PO SCH ×3 (13:06→19:57)
[2021-05-10] MEDS: Aspirin Chewable 81 MG TAB PO SCH (13:07)
[2021-05-10] MEDS: Cholecalciferol 1,000 UNITS (25 MCG) TAB PO SCH (13:07)
[2021-05-10] MEDS: hydrALAZINE 25 MG TAB PO SCH ×3 (13:07→19:58)
[2021-05-10] MEDS: NIFEdipine XL 60 MG TAB PO SCH ×2 (13:08→19:58)
[2021-05-10] MEDS: Losartan 25 MG TAB PO SCH (13:08)
[2021-05-10] MEDS: Furosemide 40 MG TAB PO SCH (13:08)
[2021-05-10] MEDS: Dronedarone HCl 400 MG TAB PO SCH ×2 (13:08→19:58)
[2021-05-10] MEDS: Carvedilol 6.25 MG TAB PO SCH ×2 (13:09→18:00)
[2021-05-10] MEDS: Apixaban 2.5 MG TAB PO SCH ×2 (13:09→19:57)
[2021-05-10] MEDS: Atorvastatin Calcium 10 MG TAB PO SCH (19:58)
[2021-05-10] MEDS: Latanoprost 0.005% Ophth Soln 2.5 ml Bottle EA EYE SCH (19:58)
[2021-05-11 04:50] LABS: #Eosinphils 0.1 thou/uL (0.0-0.7); #Monocytes 0.8 thou/uL (0.11-0.59); #Neutrophils 4.1 thou/uL (1.40-6.50); %Basophils 0.3 % (0.0-1.0); %Lymphocytes 28.6 % (21.0-51.0); %Monocytes 11.9 % (0.0-10.0); %Neutrophils 58.1 % (42.0-75.0); Hemoglobin 10.6 g/dL (12.0-16.0); Mean Corpuscular HGB CONC 31.6 g/dL (32.0-36.0); Mean Corpuscular Hemoglobin 26.8 pg (27.0-31.0); Mean Corpuscular Volume 84.7 fL (78.0-98.0); Mean Platelet Volume 7.1 fL (7.4-10.4); Platelet Count 276 thou/uL (130-400); RBC Distribution Width 12.6 % (11.5-14.5); Red Blood Cell (RBC) Count 3.97 mill/uL (4.20-5.40)
[2021-05-11 05:08] LABS: Anion Gap 11 mmol/L (10-20); BUN (Urea Nitrogen) 22 mg/dL (9.8-20.1); Calc. Creatinine Clearance 28 mL/min (70-130); Calcium 9.1 mg/dL (7.8-10.44); Carbon Dioxide 26 mmol/L (23-31); Chloride 108 mmol/L (98-107); Glucose 110 mg/dL (83-110); Potassium 3.8 mmol/L (3.5-5.1); Sodium 141 mmol/L (136-145)
[2021-05-11] MEDS: Carvedilol 6.25 MG TAB PO SCH ×2 (07:49→16:07)
[2021-05-11] MEDS: Cholecalciferol 1,000 UNITS (25 MCG) TAB PO SCH (07:50)
[2021-05-11] MEDS: Apixaban 2.5 MG TAB PO SCH ×2 (07:50→21:59)
[2021-05-11] MEDS: Spironolactone 25 MG TAB PO SCH (07:50)
[2021-05-11] MEDS: Aspirin Chewable 81 MG TAB PO SCH (07:50)
[2021-05-11] MEDS: cloNIDine 0.1 MG TAB PO SCH ×3 (07:51→21:59)
[2021-05-11] MEDS: Dronedarone HCl 400 MG TAB PO SCH ×2 (07:51→21:59)
[2021-05-11] MEDS: Furosemide 40 MG TAB PO SCH (07:51)
[2021-05-11] MEDS: hydrALAZINE 25 MG TAB PO SCH ×3 (07:51→21:59)
[2021-05-11] MEDS: Losartan 25 MG TAB PO SCH (07:52)
[2021-05-11] MEDS: NIFEdipine XL 60 MG TAB PO SCH ×2 (07:52→22:00)
[2021-05-11] MEDS: Latanoprost 0.005% Ophth Soln 2.5 ml Bottle EA EYE SCH (22:00)
[2021-05-11] MEDS: Atorvastatin Calcium 10 MG TAB PO SCH (22:00)
[2021-05-12 05:41] LABS: #Basophils 0.1 thou/uL (0.0-0.2); #Eosinphils 0.1 thou/uL (0.0-0.7); #Lymphocytes 2.6 thou/uL (1.20-3.40); #Monocytes 0.5 thou/uL (0.11-0.59); #Neutrophils 3.3 thou/uL (1.40-6.50); %Basophils 1.2 % (0.0-1.0); %Eosinophils 1.4 % (0.0-10.0); %Lymphocytes 38.8 % (21.0-51.0); %Neutrophils 50.5 % (42.0-75.0); Hemoglobin 11.5 g/dL (12.0-16.0); Mean Corpuscular Hemoglobin 25.6 pg (27.0-31.0); Mean Corpuscular Volume 85.4 fL (78.0-98.0); Mean Platelet Volume 7.6 fL (7.4-10.4); Platelet Count 333 thou/uL (130-400); RBC Distribution Width 12.7 % (11.5-14.5); White Blood Cell (WBC) Count 6.6 thou/uL (4.8-10.8)
[2021-05-12 06:09] LABS: Anion Gap 12 mmol/L (10-20); BUN (Urea Nitrogen) 19 mg/dL (9.8-20.1); Calc. Creatinine Clearance 29 mL/min (70-130); Calcium 9.7 mg/dL (7.8-10.44); Carbon Dioxide 26 mmol/L (23-31); Chloride 106 mmol/L (98-107); Glucose 95 mg/dL (83-110); Potassium 3.7 mmol/L (3.5-5.1); Sodium 140 mmol/L (136-145)
[2021-05-12] MEDS: Spironolactone 25 MG TAB PO SCH (11:54)
[2021-05-12] MEDS: Carvedilol 6.25 MG TAB PO SCH ×2 (11:54→17:38)
[2021-05-12] MEDS: Apixaban 2.5 MG TAB PO SCH ×2 (11:55→20:32)
[2021-05-12] MEDS: Aspirin Chewable 81 MG TAB PO SCH (11:55)
[2021-05-12] MEDS: Cholecalciferol 1,000 UNITS (25 MCG) TAB PO SCH (11:55)
[2021-05-12] MEDS: Dronedarone HCl 400 MG TAB PO SCH (11:55)
[2021-05-12] MEDS: cloNIDine 0.1 MG TAB PO SCH ×3 (11:55→20:32)
[2021-05-12] MEDS: Furosemide 40 MG TAB PO SCH (11:56)
[2021-05-12] MEDS: BRIMONIDINE 0.2% EA EYE SCH (11:56)
[2021-05-12] MEDS: NIFEdipine XL 60 MG TAB PO SCH ×2 (11:56→20:32)
[2021-05-12] MEDS: Losartan 25 MG TAB PO SCH (11:56)
[2021-05-12] MEDS: hydrALAZINE 25 MG TAB PO SCH ×3 (11:56→20:33)
[2021-05-12] MEDS ORDERED: PROPOFOL 20 ML ONE (13:46)
[2021-05-12] MEDS ORDERED: Lidocaine 1% PF 5 ML VIAL ONE ×2 (13:46→14:00)
[2021-05-12] MEDS ORDERED: PROPOFOL 200 MG/20 ML VIAL ONE (14:00)
[2021-05-12] MEDS ORDERED: MUCINEX INSTASOOTHE SPRY (115 ML BOT) PO PRN (19:37)
[2021-05-12] MEDS: Atorvastatin Calcium 10 MG TAB PO SCH (20:33)
[2021-05-12] MEDS: Latanoprost 0.005% Ophth Soln 2.5 ml Bottle EA EYE SCH (20:35)
[2021-05-13 04:54] LABS: #Basophils 0.1 thou/uL (0.0-0.2); #Eosinphils 0.1 thou/uL (0.0-0.7); #Lymphocytes 1.9 thou/uL (1.20-3.40); #Monocytes 0.8 thou/uL (0.11-0.59); #Neutrophils 4.4 thou/uL (1.40-6.50); %Eosinophils 0.9 % (0.0-10.0); %Lymphocytes 26.3 % (21.0-51.0); %Monocytes 10.5 % (0.0-10.0); %Neutrophils 61.3 % (42.0-75.0); Hemoglobin 11.1 g/dL (12.0-16.0); Mean Corpuscular Volume 83.8 fL (78.0-98.0); Mean Platelet Volume 7.4 fL (7.4-10.4); Platelet Count 297 thou/uL (130-400); RBC Distribution Width 12.5 % (11.5-14.5); Red Blood Cell (RBC) Count 4.26 mill/uL (4.20-5.40); White Blood Cell (WBC) Count 7.2 thou/uL (4.8-10.8)
[2021-05-13 05:17] LABS: Anion Gap 12 mmol/L (10-20); BUN (Urea Nitrogen) 19 mg/dL (9.8-20.1); Calc. Creatinine Clearance 35 mL/min (70-130); Calcium 9.1 mg/dL (7.8-10.44); Carbon Dioxide 24 mmol/L (23-31); Chloride 110 mmol/L (98-107); Glucose 90 mg/dL (83-110); Potassium 3.6 mmol/L (3.5-5.1); Sodium 142 mmol/L (136-145)
[2021-05-13] MEDS: NIFEdipine XL 60 MG TAB PO SCH (09:52)
[2021-05-13] MEDS: cloNIDine 0.1 MG TAB PO SCH ×2 (09:52→15:37)
[2021-05-13] MEDS: Aspirin Chewable 81 MG TAB PO SCH (09:52)
[2021-05-13] MEDS: Furosemide 40 MG TAB PO SCH (09:52)
[2021-05-13] MEDS: Losartan 25 MG TAB PO SCH (09:53)
[2021-05-13] MEDS: hydrALAZINE 25 MG TAB PO SCH ×2 (09:53→15:37)
[2021-05-13] MEDS: Apixaban 2.5 MG TAB PO SCH (09:53)
[2021-05-13] MEDS: Cholecalciferol 1,000 UNITS (25 MCG) TAB PO SCH (09:54)
[2021-05-13] MEDS: Spironolactone 25 MG TAB PO SCH (09:54)
[2021-05-13] MEDS: Carvedilol 6.25 MG TAB PO SCH (09:55)
[2021-05-13] MEDS: BRIMONIDINE 0.2% EA EYE SCH (09:58)
[2021-05-13 11:49] VITALS: TEMP 98
[2021-05-13 15:53] VITALS: BP 119/66
== END 2021-05-13 16:00 | disposition home or self-care (01) | DRG 291 ==
LOC: ERS 11:00 → 2SW 12:38 → OBSVTOIN 05-10 12:22
PROVIDERS: ADMIT Internal Medicine; ATTEND Internal Medicine
PROC: 5A2204Z Restoration of Cardiac Rhythm, Single (ICD-10-PCS; principal; 2021-05-12)
PROC: B24BZZ4 Ultrasonography of Heart with Aorta, Transesophageal (ICD-10-PCS; 2021-05-12)
DX: I13.0 Hypertensive heart and chronic kidney disease with heart failure and stage 1 through stage 4 chronic kidney disease, or unspecified chronic kidney disease (principal); I50.33 Acute on chronic diastolic (congestive) heart failure; I48.11 Longstanding persistent atrial fibrillation; I25.10 Atherosclerotic heart disease of native coronary artery without angina pectoris; Z20.822 Contact with and (suspected) exposure to COVID-19; I08.1 Rheumatic disorders of both mitral and tricuspid valves; I70.0 Atherosclerosis of aorta; N18.30 Chronic kidney disease, stage 3 unspecified; K21.9 Gastro-esophageal reflux disease without esophagitis; M19.90 Unspecified osteoarthritis, unspecified site; F41.9 Anxiety disorder, unspecified; R07.89 Other chest pain; E78.5 Hyperlipidemia, unspecified; Z79.01 Long term (current) use of anticoagulants; Z90.49 Acquired absence of other specified parts of digestive tract; Z98.890 Other specified postprocedural states; Z90.710 Acquired absence of both cervix and uterus; Z82.49 Family history of ischemic heart disease and other diseases of the circulatory system; Z79.899 Other long term (current) drug therapy
CPT/HCPCS: 36415; 71045; 78452; 80048; 80053; 80061; 83690; 83735; 83880; 84443; 84484; 85025; 92960; 93005; 93017; 93306; 93312; 93798; 96374; A9500; G0378; J0153; J2270; J2704; U0003; U0005

== ENCOUNTER 2021-08-07 09:40 | Outpatient (CLI) | payer MEDICARE | END 2021-08-07 09:41 | disposition home or self-care (01) | LOC: BICMAMMO 09:40 | PROVIDERS: ATTEND Internal Medicine | DX: Z12.31 Encounter for screening mammogram for malignant neoplasm of breast (principal); M81.0 Age-related osteoporosis without current pathological fracture; Z78.0 Asymptomatic menopausal state | CPT/HCPCS: 77063; 77067; 77080 ==

== ENCOUNTER 2021-10-01 14:08 | Inpatient (IN) | payer MEDICARE ==
[2021-10-01 14:49] LABS: #Eosinphils 0.1 thou/uL (0.0-0.7); #Lymphocytes 2.8 thou/uL (1.20-3.40); #Monocytes 0.6 thou/uL (0.11-0.59); #Neutrophils 4.5 thou/uL (1.40-6.50); %Basophils 0.6 % (0.0-1.0); %Eosinophils 1.1 % (0.0-10.0); %Lymphocytes 34.9 % (21.0-51.0); %Monocytes 7.8 % (0.0-10.0); %Neutrophils 55.7 % (42.0-75.0); Hemoglobin 12.5 g/dL (12.0-16.0); Mean Corpuscular HGB CONC 30.7 g/dL (32.0-36.0); Mean Corpuscular Hemoglobin 25.9 pg (27.0-31.0); Mean Corpuscular Volume 84.2 fL (78.0-98.0); Mean Platelet Volume 7.7 fL (7.4-10.4); Platelet Count 293 thou/uL (130-400); Red Blood Cell (RBC) Count 4.82 mill/uL (4.20-5.40); White Blood Cell (WBC) Count 8.1 thou/uL (4.8-10.8)
[2021-10-01 15:16] LABS: ALT (SGPT) Less than 7 U/L (8-55); AST (SGOT) 17 U/L (5-34); Albumin 4.4 g/dL (3.4-4.8); Alkaline Phosphatase 151 U/L (40-110); Anion Gap 18 mmol/L (10-20); BUN (Urea Nitrogen) 27 mg/dL (9.8-20.1); Bilirubin, Total 0.2 mg/dL (0.2-1.2); Calc. Creatinine Clearance 0 mL/min (70-130); Carbon Dioxide 25 mmol/L (23-31); Chloride 100 mmol/L (98-107); Estimated GFR 32; Globulin 3.6 g/dL (2.4-3.5); Glucose 106 mg/dL (83-110); Potassium 3.6 mmol/L (3.5-5.1); Sodium 139 mmol/L (136-145)
[2021-10-01] MEDS ORDERED: hydrALAZINE 20 MG/ML VIAL ONE (16:04)
[2021-10-01] MEDS ORDERED: Aspirin Chewable 81 MG TAB ONE (16:04)
[2021-10-01] MEDS ORDERED: Nitroglycerin 2% Ointment 1 INCH/1 GM Packet ONE (16:04)
[2021-10-01] MEDS ORDERED: Nitroglycerin 0.4 MG TAB (25 Tab Bottle) SL PRN (17:31)
[2021-10-01 18:05] LABS: Troponin I 0.013 ng/mL (< 0.028)
[2021-10-01 19:56] VITALS: BMI 22.1
[2021-10-01] MEDS: NIFEdipine XL 60 MG TAB PO SCH (20:53)
[2021-10-01] MEDS: Apixaban 2.5 MG TAB PO SCH (20:53)
[2021-10-01] MEDS: Atorvastatin Calcium 40 MG TAB PO SCH (20:53)
[2021-10-01 20:54] LABS: Troponin I Less than 0.010 ng/mL (< 0.028)
[2021-10-01] MEDS: hydrALAZINE 25 MG TAB PO SCH (20:54)
[2021-10-02 05:05] LABS: Cardiac Risk 1.7 (Less than 4.5)
[2021-10-02] MEDS ORDERED: Aspirin Chewable 81 MG TAB PO SCH (09:00)
[2021-10-02] MEDS ORDERED: Enoxaparin Sodium 30 MG/0.3 ML SYRINGE SC SCH (09:00)
[2021-10-02] MEDS: Aspirin 81 mg Enteric Coated Tablet PO SCH (09:35)
[2021-10-02] MEDS: Acetaminophen 500 MG TAB PO SCH ×3 (09:36→20:23)
[2021-10-02] MEDS: hydrALAZINE 25 MG TAB PO SCH ×3 (09:36→20:23)
[2021-10-02] MEDS: NIFEdipine XL 60 MG TAB PO SCH ×2 (09:36→20:24)
[2021-10-02] MEDS: Apixaban 2.5 MG TAB PO SCH ×2 (09:36→20:23)
[2021-10-02 10:07] LABS: #Basophils 0.1 thou/uL (0.0-0.2); #Eosinphils 0.1 thou/uL (0.0-0.7); #Lymphocytes 2.1 thou/uL (1.20-3.40); #Monocytes 0.7 thou/uL (0.11-0.59); #Neutrophils 4.5 thou/uL (1.40-6.50); %Basophils 0.8 % (0.0-1.0); %Eosinophils 1.6 % (0.0-10.0); %Lymphocytes 27.8 % (21.0-51.0); %Monocytes 9.7 % (0.0-10.0); %Neutrophils 60.2 % (42.0-75.0); Hemoglobin 10.9 g/dL (12.0-16.0); Mean Corpuscular HGB CONC 31.6 g/dL (32.0-36.0); Mean Corpuscular Hemoglobin 26.5 pg (27.0-31.0); Mean Corpuscular Volume 83.6 fL (78.0-98.0); Mean Platelet Volume 7.4 fL (7.4-10.4); Platelet Count 282 thou/uL (130-400); RBC Distribution Width 12.9 % (11.5-14.5); Red Blood Cell (RBC) Count 4.11 mill/uL (4.20-5.40); White Blood Cell (WBC) Count 7.5 thou/uL (4.8-10.8)
[2021-10-02 10:13] LABS: Anion Gap 16 mmol/L (10-20); BUN (Urea Nitrogen) 22 mg/dL (9.8-20.1); Calc. Creatinine Clearance 36 mL/min (70-130); Calcium 9.4 mg/dL (7.8-10.44); Carbon Dioxide 25 mmol/L (23-31); Chloride 105 mmol/L (98-107); Estimated GFR 50; Glucose 104 mg/dL (83-110); Potassium 3.5 mmol/L (3.5-5.1); Sodium 142 mmol/L (136-145)
[2021-10-02] MEDS ORDERED: Regadenoson 0.4 MG/5 ML SYRINGE ONE (13:01)
[2021-10-02] MEDS: Atorvastatin Calcium 40 MG TAB PO SCH (20:23)
[2021-10-03 04:57] LABS: #Eosinphils 0.2 thou/uL (0.0-0.7); #Lymphocytes 2.4 thou/uL (1.20-3.40); #Monocytes 0.7 thou/uL (0.11-0.59); #Neutrophils 3.9 thou/uL (1.40-6.50); %Basophils 0.7 % (0.0-1.0); %Eosinophils 2.1 % (0.0-10.0); %Lymphocytes 33.2 % (21.0-51.0); Hemoglobin 12.3 g/dL (12.0-16.0); Mean Corpuscular HGB CONC 30.3 g/dL (32.0-36.0); Mean Corpuscular Hemoglobin 25.6 pg (27.0-31.0); Mean Corpuscular Volume 84.5 fL (78.0-98.0); Mean Platelet Volume 7.5 fL (7.4-10.4); Platelet Count 303 thou/uL (130-400); RBC Distribution Width 12.9 % (11.5-14.5); White Blood Cell (WBC) Count 7.3 thou/uL (4.8-10.8)
[2021-10-03 05:05] LABS: Anion Gap 15 mmol/L (10-20); BUN (Urea Nitrogen) 18 mg/dL (9.8-20.1); Calc. Creatinine Clearance 38 mL/min (70-130); Calcium 9.5 mg/dL (7.8-10.44); Carbon Dioxide 25 mmol/L (23-31); Chloride 106 mmol/L (98-107); Estimated GFR 53; Glucose 96 mg/dL (83-110); Potassium 3.6 mmol/L (3.5-5.1); Sodium 142 mmol/L (136-145)
[2021-10-03] MEDS ORDERED: cloNIDine 0.1 MG TAB PO SCH ×2 (09:15→15:00)
[2021-10-03] MEDS: Apixaban 2.5 MG TAB PO SCH (09:25)
[2021-10-03] MEDS: NIFEdipine XL 60 MG TAB PO SCH (09:25)
[2021-10-03] MEDS: Aspirin 81 mg Enteric Coated Tablet PO SCH (09:25)
[2021-10-03] MEDS: hydrALAZINE 25 MG TAB PO SCH ×2 (09:25→14:43)
[2021-10-03] MEDS: Acetaminophen 500 MG TAB PO SCH ×2 (09:26→14:43)
[2021-10-03 15:42] VITALS: BP 144/73; TEMP 98.5
== END 2021-10-03 15:43 | disposition home or self-care (01) | DRG 313 ==
LOC: ERS 14:08 → ERHOLD 16:50 → 2SW 19:46 → OBSVTOIN 10-02 15:42
PROVIDERS: ADMIT Hospitalist; ATTEND Hospitalist
DX: R07.9 Chest pain, unspecified (principal); N17.9 Acute kidney failure, unspecified; I48.19 Other persistent atrial fibrillation; I48.92 Unspecified atrial flutter; Z20.822 Contact with and (suspected) exposure to COVID-19; I25.10 Atherosclerotic heart disease of native coronary artery without angina pectoris; N18.9 Chronic kidney disease, unspecified; E78.5 Hyperlipidemia, unspecified; M19.90 Unspecified osteoarthritis, unspecified site; I13.10 Hypertensive heart and chronic kidney disease without heart failure, with stage 1 through stage 4 chronic kidney disease, or unspecified chronic kidney disease; K21.9 Gastro-esophageal reflux disease without esophagitis; Z95.5 Presence of coronary angioplasty implant and graft; Z90.49 Acquired absence of other specified parts of digestive tract; Z90.710 Acquired absence of both cervix and uterus; Z79.01 Long term (current) use of anticoagulants; Z79.899 Other long term (current) drug therapy
CPT/HCPCS: 36415; 71045; 76705; 78452; 80048; 80053; 80061; 83690; 84484; 85025; 93005; 93010; 93017; 93306; 94760; 96374; A9500; G0378; J0360; J2785; U0003; U0005

== ENCOUNTER 2022-07-30 05:45 | Day surgery (SDC) | payer MEDICARE ==
[2022-07-29 13:59] VITALS: BMI 23.2
[2022-07-30] MEDS ORDERED: Flecainide 50 MG TAB ONE (07:35)
== END 2022-07-30 07:49 | disposition home or self-care (01) ==
LOC: SDC 05:45
PROVIDERS: ATTEND Internal Medicine Cardiovascular Disease
DX: I48.0 Paroxysmal atrial fibrillation (principal); E11.51 Type 2 diabetes mellitus with diabetic peripheral angiopathy without gangrene; I25.118 Atherosclerotic heart disease of native coronary artery with other forms of angina pectoris; I12.9 Hypertensive chronic kidney disease with stage 1 through stage 4 chronic kidney disease, or unspecified chronic kidney disease; E11.22 Type 2 diabetes mellitus with diabetic chronic kidney disease; N18.9 Chronic kidney disease, unspecified; E78.2 Mixed hyperlipidemia; M19.90 Unspecified osteoarthritis, unspecified site; K21.9 Gastro-esophageal reflux disease without esophagitis; Z53.8 Procedure and treatment not carried out for other reasons; Z86.73 Personal history of transient ischemic attack (TIA), and cerebral infarction without residual deficits; Z79.01 Long term (current) use of anticoagulants; Z79.82 Long term (current) use of aspirin; Z79.899 Other long term (current) drug therapy
CPT/HCPCS: 93005; 93010

== ENCOUNTER 2022-11-13 22:59 | Inpatient (IN) | payer MEDICARE ==
[2022-11-13 23:33] LABS: #Eosinphils 0.1 thou/uL (0.0-0.7); #Monocytes 0.8 thou/uL (0.11-0.59); #Neutrophils 4.7 thou/uL (1.40-6.50); %Basophils 0.5 % (0.0-1.0); %Eosinophils 1.1 % (0.0-10.0); %Lymphocytes 29.7 % (21.0-51.0); %Monocytes 9.7 % (0.0-10.0); %Neutrophils 58.9 % (42.0-75.0); Hematocrit 32.1 % (36.0-47.0); Hemoglobin 9.7 g/dL (12.0-16.0); Mean Corpuscular HGB CONC 30.2 g/dL (32.0-36.0); Mean Corpuscular Hemoglobin 25.7 pg (27.0-31.0); Mean Corpuscular Volume 85.1 fl (78.0-98.0); Mean Platelet Volume 9.6 fL (7.4-10.4); Platelet Count 283 10x3/uL (130-400); RBC Distribution Width 15.5 % (11.5-14.5); Red Blood Cell (RBC) Count 3.77 mill/uL (4.20-5.40); White Blood Cell (WBC) Count 7.9 10x3/uL (4.8-10.8)
[2022-11-13 23:49] LABS: INR-International Normal Ratio 1.1; PTT 44.1 sec (22.9-36.1); Prothrombin Time 14.1 sec (12.0-14.7)
[2022-11-13 23:54] LABS: ALT (SGPT) Less than 7 U/L (8-55); AST (SGOT) 12 U/L (5-34); Albumin 3.9 g/dL (3.4-4.8); Alkaline Phosphatase 152 U/L (40-110); Anion Gap 15 mmol/L (10-20); BUN (Urea Nitrogen) 51 mg/dL (9.8-20.1); Bilirubin, Total 0.2 mg/dL (0.2-1.2); Calc. Creatinine Clearance 0 mL/min (70-130); Calcium 9.2 mg/dL (7.8-10.44); Carbon Dioxide 25 mmol/L (23-31); Chloride 104 mmol/L (98-107); Estimated GFR 25; Globulin 3.1 g/dL (2.4-3.5); Glucose 135 mg/dL (83-110); Potassium 4.7 mmol/L (3.5-5.1); Sodium 139 mmol/L (136-145)
[2022-11-14] MEDS ORDERED: Ondansetron ODT 4 MG TAB PO PRN (02:24)
[2022-11-14] MEDS ORDERED: Ondansetron PF 4 MG/2 ML Vial IVP PRN (02:24)
[2022-11-14] MEDS ORDERED: Acetaminophen 325 MG TAB PO PRN (02:24)
[2022-11-14] MEDS ORDERED: Acetaminophen 650 MG Suppository PR PRN (02:24)
[2022-11-14 02:31] LABS: Bacteria/HPF None Seen HPF (None Seen); Bilirubin Negative (Negative); Blood, Urine Negative (Negative); CAUTI Indications for Culture Pelvic or flank pain; Clarity Clear (Clear); Glucose, Urine (Dipstick) Normal (Negative); Ketone, Urine Negative (Negative); Leukocyte Negative Leu/uL (Negative); Nitrite Negative (Negative); Protein, Urine (Dipstick) Negative (Neg-Trace); RBC/HPF 0-3 HPF (0-3); Specific Gravity, Urine 1.012 (1.002-1.036); Squamous Epithelial 0-3 HPF (0-3); Urobilinogen Normal mg/dL (Less than 2); WBC/HPF 0-3 HPF (0-3)
[2022-11-14 02:38] LABS: Urine Culture Reflex No No
[2022-11-14 02:41] VITALS: BMI 20.2
[2022-11-14] MEDS ORDERED: Pantoprazole 40 MG VIAL IVP SCH (03:15)
[2022-11-14] MEDS ORDERED: Pantoprazole 40 MG VIAL ONE (03:16)
[2022-11-14 07:31] LABS: #Eosinphils 0.1 thou/uL (0.0-0.7); #Monocytes 0.9 thou/uL (0.11-0.59); #Neutrophils 6.1 thou/uL (1.40-6.50); %Basophils 0.3 % (0.0-1.0); %Eosinophils 0.5 % (0.0-10.0); %Lymphocytes 25.6 % (21.0-51.0); %Neutrophils 64.3 % (42.0-75.0); Hematocrit 25.6 % (36.0-47.0); Hemoglobin 7.8 g/dL (12.0-16.0); Mean Corpuscular HGB CONC 30.5 g/dL (32.0-36.0); Mean Corpuscular Hemoglobin 26.3 pg (27.0-31.0); Mean Corpuscular Volume 86.2 fl (78.0-98.0); Mean Platelet Volume 10.2 fL (7.4-10.4); Platelet Count 202 10x3/uL (130-400); RBC Distribution Width 15.4 % (11.5-14.5); Red Blood Cell (RBC) Count 2.97 mill/uL (4.20-5.40); White Blood Cell (WBC) Count 9.5 10x3/uL (4.8-10.8)
[2022-11-14 07:52] LABS: Anion Gap 14 mmol/L (10-20); BUN (Urea Nitrogen) 47 mg/dL (9.8-20.1); Calc. Creatinine Clearance 28 mL/min (70-130); Calcium 8.5 mg/dL (7.8-10.44); Carbon Dioxide 19 mmol/L (23-31); Chloride 111 mmol/L (98-107); Estimated GFR 38; Glucose 115 mg/dL (83-110); Potassium 5.1 mmol/L (3.5-5.1); Sodium 139 mmol/L (136-145)
[2022-11-14 12:01] LABS: Hematocrit 28.6 % (36.0-47.0); Hemoglobin 8.5 g/dL (12.0-16.0); Platelet Count 228 10x3/uL (130-400)
[2022-11-14] MEDS: Pantoprazole 40 MG VIAL IVP SCH (16:22)
[2022-11-15] MEDS: Brimonidine Tartrate 0.2% Ophth Soln 5 ml Bottle EA EYE SCH ×2 (11:10→22:24)
[2022-11-15] MEDS: cloNIDine 0.1 MG TAB PO SCH ×3 (11:11→21:03)
[2022-11-15] MEDS: NIFEdipine XL 60 MG TAB PO SCH ×2 (11:11→21:03)
[2022-11-15] MEDS: hydrALAZINE 25 MG TAB PO SCH ×3 (11:11→21:02)
[2022-11-15] MEDS: Pantoprazole 40 MG VIAL IVP SCH (11:12)
[2022-11-15] MEDS: Carvedilol 6.25 MG TAB PO SCH (21:03)
[2022-11-15] MEDS: Atorvastatin Calcium 10 MG TAB PO SCH (21:03)
[2022-11-15] MEDS: Latanoprost 0.005% Ophth Soln 2.5 ml Bottle EA EYE SCH (22:23)
[2022-11-16 06:35] LABS: #Basophils 0.1 thou/uL (0.0-0.2); #Eosinphils 0.1 thou/uL (0.0-0.7); #Monocytes 0.9 thou/uL (0.11-0.59); #Neutrophils 5.8 thou/uL (1.40-6.50); %Basophils 0.5 % (0.0-1.0); %Eosinophils 1.4 % (0.0-10.0); %Lymphocytes 26.3 % (21.0-51.0); %Monocytes 9.4 % (0.0-10.0); %Neutrophils 62.1 % (42.0-75.0); Hematocrit 20.4 % (36.0-47.0); Hemoglobin 6.1 g/dL (12.0-16.0); Mean Corpuscular HGB CONC 29.9 g/dL (32.0-36.0); Mean Corpuscular Volume 86.8 fl (78.0-98.0); Mean Platelet Volume 10.2 fL (7.4-10.4); Platelet Count 226 10x3/uL (130-400); RBC Distribution Width 15.9 % (11.5-14.5); Red Blood Cell (RBC) Count 2.35 mill/uL (4.20-5.40); White Blood Cell (WBC) Count 9.4 10x3/uL (4.8-10.8)
[2022-11-16 06:55] LABS: Anion Gap 10 mmol/L (10-20); BUN (Urea Nitrogen) 26 mg/dL (9.8-20.1); Calc. Creatinine Clearance 30 mL/min (70-130); Calcium 8.6 mg/dL (7.8-10.44); Carbon Dioxide 21 mmol/L (23-31); Chloride 111 mmol/L (98-107); Estimated GFR 40; Glucose 109 mg/dL (83-110); Potassium 4.1 mmol/L (3.5-5.1); Sodium 138 mmol/L (136-145)
[2022-11-16] MEDS: Furosemide 40 MG TAB PO SCH (08:35)
[2022-11-16] MEDS: Carvedilol 6.25 MG TAB PO SCH ×2 (08:35→21:31)
[2022-11-16] MEDS: cloNIDine 0.1 MG TAB PO SCH ×3 (08:35→21:31)
[2022-11-16] MEDS: Pantoprazole 40 MG VIAL IVP SCH ×2 (08:36→21:32)
[2022-11-16] MEDS: hydrALAZINE 25 MG TAB PO SCH ×3 (08:36→21:31)
[2022-11-16] MEDS: Brimonidine Tartrate 0.2% Ophth Soln 5 ml Bottle EA EYE SCH ×2 (08:49→21:33)
[2022-11-16] MEDS: NIFEdipine XL 60 MG TAB PO SCH ×2 (09:32→21:30)
[2022-11-16 10:22] LABS: Hematocrit 20.5 % (36.0-47.0); Hemoglobin 6.3 g/dL (12.0-16.0); Platelet Count 240 10x3/uL (130-400)
[2022-11-16 16:26] LABS: Hematocrit 24.5 % (36.0-47.0); Hemoglobin 7.7 g/dL (12.0-16.0); Platelet Count 224 10x3/uL (130-400)
[2022-11-16] MEDS: Atorvastatin Calcium 10 MG TAB PO SCH (21:31)
[2022-11-16] MEDS: Latanoprost 0.005% Ophth Soln 2.5 ml Bottle EA EYE SCH (21:33)
[2022-11-16 22:52] LABS: Hematocrit 23.4 % (36.0-47.0); Hemoglobin 7.4 g/dL (12.0-16.0); Platelet Count 232 10x3/uL (130-400)
[2022-11-17 05:02] LABS: #Eosinphils 0.1 thou/uL (0.0-0.7); #Monocytes 0.9 thou/uL (0.11-0.59); #Neutrophils 6.5 thou/uL (1.40-6.50); %Basophils 0.3 % (0.0-1.0); %Eosinophils 1.4 % (0.0-10.0); %Lymphocytes 21.6 % (21.0-51.0); %Monocytes 9.5 % (0.0-10.0); %Neutrophils 66.9 % (42.0-75.0); Hematocrit 24.7 % (36.0-47.0); Hemoglobin 7.9 g/dL (12.0-16.0); Mean Corpuscular Hemoglobin 27.2 pg (27.0-31.0); Mean Corpuscular Volume 85.2 fl (78.0-98.0); Mean Platelet Volume 9.6 fL (7.4-10.4); Platelet Count 253 10x3/uL (130-400); RBC Distribution Width 15.7 % (11.5-14.5); White Blood Cell (WBC) Count 9.8 10x3/uL (4.8-10.8)
[2022-11-17 05:04] LABS: Hematocrit 24.4 % (36.0-47.0); Hemoglobin 7.8 g/dL (12.0-16.0); Platelet Count 250 10x3/uL (130-400)
[2022-11-17 05:34] LABS: Anion Gap 11 mmol/L (10-20); BUN (Urea Nitrogen) 22 mg/dL (9.8-20.1); Calc. Creatinine Clearance 32 mL/min (70-130); Calcium 8.7 mg/dL (7.8-10.44); Carbon Dioxide 21 mmol/L (23-31); Chloride 113 mmol/L (98-107); Estimated GFR 42; Glucose 119 mg/dL (83-110); Potassium 3.8 mmol/L (3.5-5.1); Sodium 141 mmol/L (136-145)
[2022-11-17] MEDS: Pantoprazole 40 MG VIAL IVP SCH ×2 (09:02→22:02)
[2022-11-17] MEDS: NIFEdipine XL 60 MG TAB PO SCH ×2 (09:02→22:01)
[2022-11-17] MEDS: cloNIDine 0.1 MG TAB PO SCH ×3 (09:02→22:01)
[2022-11-17] MEDS: Furosemide 40 MG TAB PO SCH (09:02)
[2022-11-17] MEDS: hydrALAZINE 25 MG TAB PO SCH ×3 (09:03→22:00)
[2022-11-17] MEDS: Brimonidine Tartrate 0.2% Ophth Soln 5 ml Bottle EA EYE SCH ×2 (09:03→22:02)
[2022-11-17] MEDS: Carvedilol 6.25 MG TAB PO SCH ×2 (09:03→22:01)
[2022-11-17] MEDS: Atorvastatin Calcium 10 MG TAB PO SCH (22:00)
[2022-11-17] MEDS: Latanoprost 0.005% Ophth Soln 2.5 ml Bottle EA EYE SCH (22:02)
[2022-11-18 05:17] LABS: #Eosinphils 0.2 thou/uL (0.0-0.7); #Monocytes 0.9 thou/uL (0.11-0.59); #Neutrophils 5.5 thou/uL (1.40-6.50); %Basophils 0.4 % (0.0-1.0); %Eosinophils 2.7 % (0.0-10.0); %Lymphocytes 24.6 % (21.0-51.0); %Monocytes 10.3 % (0.0-10.0); %Neutrophils 61.7 % (42.0-75.0); Hematocrit 22.9 % (36.0-47.0); Hemoglobin 7.3 g/dL (12.0-16.0); Mean Corpuscular HGB CONC 31.9 g/dL (32.0-36.0); Mean Corpuscular Hemoglobin 27.2 pg (27.0-31.0); Mean Corpuscular Volume 85.4 fl (78.0-98.0); Mean Platelet Volume 9.4 fL (7.4-10.4); Platelet Count 245 10x3/uL (130-400); RBC Distribution Width 15.9 % (11.5-14.5); Red Blood Cell (RBC) Count 2.68 mill/uL (4.20-5.40); White Blood Cell (WBC) Count 8.9 10x3/uL (4.8-10.8)
[2022-11-18 05:39] LABS: Anion Gap 12 mmol/L (10-20); BUN (Urea Nitrogen) 24 mg/dL (9.8-20.1); Calc. Creatinine Clearance 29 mL/min (70-130); Calcium 8.8 mg/dL (7.8-10.44); Carbon Dioxide 22 mmol/L (23-31); Chloride 109 mmol/L (98-107); Estimated GFR 38; Glucose 106 mg/dL (83-110); Potassium 3.9 mmol/L (3.5-5.1); Sodium 139 mmol/L (136-145)
[2022-11-18] MEDS: Pantoprazole 40 MG VIAL IVP SCH (08:14)
[2022-11-18] MEDS: NIFEdipine XL 60 MG TAB PO SCH ×2 (08:16→08:22)
[2022-11-18] MEDS: cloNIDine 0.1 MG TAB PO SCH (08:18)
[2022-11-18] MEDS: hydrALAZINE 25 MG TAB PO SCH (08:18)
[2022-11-18] MEDS: Furosemide 40 MG TAB PO SCH (08:19)
[2022-11-18] MEDS: Carvedilol 6.25 MG TAB PO SCH (08:19)
[2022-11-18] MEDS: Brimonidine Tartrate 0.2% Ophth Soln 5 ml Bottle EA EYE SCH (08:20)
[2022-11-18 08:21] VITALS: BP 115/54
[2022-11-18 08:24] VITALS: TEMP 98.2
== END 2022-11-18 12:30 | disposition home or self-care (01) | DRG 378 ==
LOC: ERS 22:59 → ERHOLD 11-14 01:32 → INTOOBSV 11-14 01:32 → 2NO 11-14 12:25 → OBSVTOIN 11-15 14:12
PROVIDERS: ADMIT Student in an Organized Health Care Education/Training Program; ATTEND Family Medicine
PROC: 30233N1 Transfusion of Nonautologous Red Blood Cells into Peripheral Vein, Percutaneous Approach (ICD-10-PCS; principal; 2022-11-15)
DX: K92.2 Gastrointestinal hemorrhage, unspecified (principal); D62 Acute posthemorrhagic anemia; N17.9 Acute kidney failure, unspecified; I48.91 Unspecified atrial fibrillation; K21.9 Gastro-esophageal reflux disease without esophagitis; I16.0 Hypertensive urgency; I11.0 Hypertensive heart disease with heart failure; N18.9 Chronic kidney disease, unspecified; I25.10 Atherosclerotic heart disease of native coronary artery without angina pectoris; Z79.899 Other long term (current) drug therapy; Z79.82 Long term (current) use of aspirin; Z90.49 Acquired absence of other specified parts of digestive tract; Z90.710 Acquired absence of both cervix and uterus; Z98.890 Other specified postprocedural states
CPT/HCPCS: 36415; 36430; 78278; 80048; 80053; 81001; 82274; 84484; 85014; 85018; 85025; 85049; 85610; 85730; 86850; 86900; 86901; 93005; 96360; 96361; A9560; C9113; P9016

== ENCOUNTER 2022-12-22 16:37 | Inpatient (IN) | payer MEDICARE ==
[2022-12-22] MEDS ORDERED: Glucagon 1 MG/ML KIT ONE (17:20)
[2022-12-22 17:36] LABS: #Eosinphils 0.1 thou/uL (0.0-0.7); #Neutrophils 6.7 thou/uL (1.40-6.50); %Basophils 0.4 % (0.0-1.0); %Eosinophils 1.1 % (0.0-10.0); %Lymphocytes 23.2 % (21.0-51.0); %Monocytes 9.4 % (0.0-10.0); %Neutrophils 65.6 % (42.0-75.0); Hematocrit 26.9 % (36.0-47.0); Hemoglobin 8.4 g/dL (12.0-16.0); Mean Corpuscular HGB CONC 31.2 g/dL (32.0-36.0); Mean Corpuscular Hemoglobin 26.3 pg (27.0-31.0); Mean Corpuscular Volume 84.1 fl (78.0-98.0); Platelet Count 355 10x3/uL (130-400); RBC Distribution Width 15.2 % (11.5-14.5); White Blood Cell (WBC) Count 10.2 10x3/uL (4.8-10.8)
[2022-12-22 17:58] LABS: Troponin I 0.013 ng/mL (< 0.028)
[2022-12-22 18:04] LABS: Bacteria/HPF None Seen HPF (None Seen); Bilirubin Negative (Negative); Blood, Urine Negative (Negative); CAUTI Indications for Culture Fever or rigors; Clarity Clear (Clear); Glucose, Urine (Dipstick) Normal (Negative); Ketone, Urine Negative (Negative); Leukocyte 75 Leu/uL (Negative); Nitrite Negative (Negative); Protein, Urine (Dipstick) Negative (Neg-Trace); RBC/HPF 0-3 HPF (0-3); Specific Gravity, Urine 1.011 (1.002-1.036); Squamous Epithelial 0-3 HPF (0-3); Urobilinogen Normal mg/dL (Less than 2)
[2022-12-22 18:07] LABS: ALT (SGPT) 21 U/L (8-55); AST (SGOT) 31 U/L (5-34); Albumin 4.1 g/dL (3.4-4.8); Alkaline Phosphatase 122 U/L (40-110); Anion Gap 16 mmol/L (10-20); BUN (Urea Nitrogen) 40 mg/dL (9.8-20.1); Bilirubin, Total 0.3 mg/dL (0.2-1.2); Calc. Creatinine Clearance 0 mL/min (70-130); Calcium 9.4 mg/dL (7.8-10.44); Carbon Dioxide 26 mmol/L (23-31); Chloride 103 mmol/L (98-107); Estimated GFR 20; Globulin 2.8 g/dL (2.4-3.5); Glucose 127 mg/dL (83-110); Lipase 47 U/L (8-78); Potassium 5.1 mmol/L (3.5-5.1); Protein, Total 6.9 g/dL (5.8-8.1); Sodium 140 mmol/L (136-145)
[2022-12-22] MEDS ORDERED: Furosemide 40 MG/4 ML VIAL ONE (18:14)
[2022-12-22 18:15] LABS: Urine Culture Reflex No No
[2022-12-22] MEDS ORDERED: Ipratropium/Albuterol 3 ML NEB NEB SCH (20:45)
[2022-12-22] MEDS ORDERED: FLU VACC QS2023(65UP)/MF59C/PF 60 MCG/0.5 ML SYRINGE IM ONE (21:00)
[2022-12-22] MEDS ORDERED: hydrALAZINE 25 MG TAB PO SCH ×2 (21:30)
[2022-12-22] MEDS ORDERED: Apixaban 2.5 MG TAB PO SCH (21:30)
[2022-12-22] MEDS ORDERED: NIFEdipine XL 60 MG ER.TAB PO SCH (21:30)
[2022-12-23] MEDS ORDERED: Atropine Sulfate 1 mg/1 ml Vial IVP PRN (02:31)
[2022-12-23 05:28] LABS: #Monocytes 1.1 thou/uL (0.11-0.59); #Neutrophils 10.8 thou/uL (1.40-6.50); %Basophils 0.3 % (0.0-1.0); %Eosinophils 0.1 % (0.0-10.0); %Lymphocytes 9.5 % (21.0-51.0); %Monocytes 8.1 % (0.0-10.0); %Neutrophils 81.7 % (42.0-75.0); Hematocrit 30.7 % (36.0-47.0); Hemoglobin 9.3 g/dL (12.0-16.0); Mean Corpuscular HGB CONC 30.3 g/dL (32.0-36.0); Mean Corpuscular Volume 85.8 fl (78.0-98.0); Mean Platelet Volume 10.2 fL (7.4-10.4); Platelet Count 413 10x3/uL (130-400); RBC Distribution Width 15.2 % (11.5-14.5); Red Blood Cell (RBC) Count 3.58 mill/uL (4.20-5.40); White Blood Cell (WBC) Count 13.3 10x3/uL (4.8-10.8)
[2022-12-23 05:52] LABS: Anion Gap 18 mmol/L (10-20); BUN (Urea Nitrogen) 36 mg/dL (9.8-20.1); Calc. Creatinine Clearance 19 mL/min (70-130); Calcium 9.6 mg/dL (7.8-10.44); Carbon Dioxide 25 mmol/L (23-31); Chloride 101 mmol/L (98-107); Estimated GFR 24; Glucose 90 mg/dL (83-110); Magnesium 2.7 mg/dL (1.6-2.6); Potassium 3.9 mmol/L (3.5-5.1); Sodium 140 mmol/L (136-145)
[2022-12-23] MEDS: Furosemide 40 MG/4 ML VIAL SLOW IVP SCH ×2 (06:01→14:40)
[2022-12-23] MEDS ORDERED: Nitroglycerin 0.4 MG TAB (25 Tab Bottle) SL PRN (08:12)
[2022-12-23] MEDS ORDERED: tiZANidine HCl 4 MG TAB PO PRN (08:12)
[2022-12-23] MEDS ORDERED: Flecainide 50 MG TAB PO SCH (09:00)
[2022-12-23] MEDS ORDERED: Apixaban 2.5 MG TAB PO SCH (09:00)
[2022-12-23] MEDS ORDERED: Non-Formulary Item 1 EACH (Hydralazine Hcl [Apresoline] 50 MG Tab) PO SCH (09:00)
[2022-12-23] MEDS: Acetaminophen 325 MG TAB PO PRN ×2 (09:39→20:33)
[2022-12-23] MEDS: Brimonidine Tartrate 0.2% Ophth Soln 5 ml Bottle EA EYE SCH ×2 (10:25→21:03)
[2022-12-23] MEDS: Benzonatate 100 MG CAP PO PRN ×2 (10:25→17:57)
[2022-12-23 12:38] VITALS: BMI 22.5
[2022-12-23] MEDS ORDERED: Electrolyte Replacement Protocol 1 EACH FS SCH (15:45)
[2022-12-23] MEDS ORDERED: DOPamine 400 MG/D5W 250 ML 250 ML IVPB PRN (17:20)
[2022-12-23] MEDS: NIFEdipine XL 60 MG ER.TAB PO SCH (20:34)
[2022-12-23] MEDS: Atorvastatin Calcium 10 MG TAB PO SCH (20:34)
[2022-12-23] MEDS: Latanoprost 0.005% Ophth Soln 2.5 ml Bottle EA EYE SCH (20:54)
[2022-12-24] MEDS: Furosemide 40 MG/4 ML VIAL SLOW IVP SCH ×2 (06:04→16:18)
[2022-12-24 06:32] LABS: #Basophils 0.1 thou/uL (0.0-0.2); #Eosinphils 0.1 thou/uL (0.0-0.7); #Monocytes 1.1 thou/uL (0.11-0.59); #Neutrophils 9.2 thou/uL (1.40-6.50); %Basophils 0.5 % (0.0-1.0); %Eosinophils 0.8 % (0.0-10.0); %Lymphocytes 12.7 % (21.0-51.0); %Monocytes 8.9 % (0.0-10.0); %Neutrophils 76.8 % (42.0-75.0); Hematocrit 33.9 % (36.0-47.0); Hemoglobin 10.4 g/dL (12.0-16.0); Mean Corpuscular HGB CONC 30.7 g/dL (32.0-36.0); Mean Corpuscular Hemoglobin 25.9 pg (27.0-31.0); Mean Corpuscular Volume 84.3 fl (78.0-98.0); Mean Platelet Volume 9.3 fL (7.4-10.4); Platelet Count 413 10x3/uL (130-400); Red Blood Cell (RBC) Count 4.02 mill/uL (4.20-5.40)
[2022-12-24 06:57] LABS: Anion Gap 15 mmol/L (10-20); BUN (Urea Nitrogen) 32 mg/dL (9.8-20.1); Calc. Creatinine Clearance 22 mL/min (70-130); Calcium 9.8 mg/dL (7.8-10.44); Carbon Dioxide 28 mmol/L (23-31); Chloride 101 mmol/L (98-107); Estimated GFR 28; Glucose 109 mg/dL (83-110); Potassium 3.5 mmol/L (3.5-5.1); Sodium 140 mmol/L (136-145)
[2022-12-24] MEDS: Potassium Chloride 20 MEQ in Premix Bag 1 BAG IVPB SCH ×2 (08:06→08:07)
[2022-12-24] MEDS: Brimonidine Tartrate 0.2% Ophth Soln 5 ml Bottle EA EYE SCH ×2 (08:08→20:47)
[2022-12-24] MEDS ORDERED: Gentamicin 80 MG/2 ML VIAL ONE (12:57)
[2022-12-24] MEDS ORDERED: CEFAZOLIN 2 GM VIAL ONE (12:57)
[2022-12-24] MEDS ORDERED: Propofol 500 MG/50 ML VIAL ONE (13:09)
[2022-12-24] MEDS ORDERED: Lidocaine 1% PF 5 ML VIAL ONE ×2 (13:49→14:21)
[2022-12-24] MEDS ORDERED: fentaNYL 50 mcg/mL 1 mL Vial ONE (13:49)
[2022-12-24] MEDS ORDERED: Lidocaine 1% (PF) 30 ML VIAL ONE (13:50)
[2022-12-24] MEDS ORDERED: PROPOFOL 200 MG/20 ML VIAL ONE (14:21)
[2022-12-24] MEDS ORDERED: PHENYLEPHRINE-NS 100 MCG/ML 10 ML SYRINGE ONE (14:21)
[2022-12-24] MEDS ORDERED: Acetaminophen 325 MG TAB PO PRN (16:16)
[2022-12-24] MEDS: NIFEdipine XL 60 MG ER.TAB PO SCH ×2 (16:18→20:47)
[2022-12-24] MEDS: Isosorbide Mononitrate 60 MG ER.TAB PO SCH (16:19)
[2022-12-24] MEDS: Acetaminophen/Codeine 30-300mg Tablet PO PRN (17:17)
[2022-12-24] MEDS: Carvedilol 6.25 MG TAB PO SCH (17:17)
[2022-12-24 18:03] LABS: Potassium 4.3 mmol/L (3.5-5.1)
[2022-12-24] MEDS: Cephalexin 250 MG CAP PO SCH (20:46)
[2022-12-24] MEDS: Latanoprost 0.005% Ophth Soln 2.5 ml Bottle EA EYE SCH (20:47)
[2022-12-24] MEDS: Atorvastatin Calcium 10 MG TAB PO SCH (20:47)
[2022-12-25] MEDS: Furosemide 40 MG/4 ML VIAL SLOW IVP SCH (05:10)
[2022-12-25 05:37] LABS: #Basophils 0.1 thou/uL (0.0-0.2); #Eosinphils 0.3 thou/uL (0.0-0.7); #Neutrophils 7.3 thou/uL (1.40-6.50); %Basophils 0.6 % (0.0-1.0); %Lymphocytes 14.4 % (21.0-51.0); %Monocytes 10.2 % (0.0-10.0); %Neutrophils 71.4 % (42.0-75.0); Hematocrit 34.2 % (36.0-47.0); Hemoglobin 10.6 g/dL (12.0-16.0); Mean Corpuscular Hemoglobin 25.8 pg (27.0-31.0); Mean Corpuscular Volume 83.2 fl (78.0-98.0); Mean Platelet Volume 9.7 fL (7.4-10.4); Platelet Count 410 10x3/uL (130-400); RBC Distribution Width 14.6 % (11.5-14.5); Red Blood Cell (RBC) Count 4.11 mill/uL (4.20-5.40); White Blood Cell (WBC) Count 10.2 10x3/uL (4.8-10.8)
[2022-12-25 06:04] LABS: Anion Gap 17 mmol/L (10-20); BUN (Urea Nitrogen) 34 mg/dL (9.8-20.1); Calc. Creatinine Clearance 22 mL/min (70-130); Calcium 9.6 mg/dL (7.8-10.44); Carbon Dioxide 24 mmol/L (23-31); Chloride 102 mmol/L (98-107); Estimated GFR 28; Glucose 105 mg/dL (83-110); Potassium 4.3 mmol/L (3.5-5.1); Sodium 139 mmol/L (136-145)
[2022-12-25] MEDS: Carvedilol 6.25 MG TAB PO SCH (08:32)
[2022-12-25] MEDS: NIFEdipine XL 60 MG ER.TAB PO SCH ×2 (08:32→21:11)
[2022-12-25] MEDS: Isosorbide Mononitrate 60 MG ER.TAB PO SCH (08:32)
[2022-12-25] MEDS: Brimonidine Tartrate 0.2% Ophth Soln 5 ml Bottle EA EYE SCH ×2 (08:32→21:18)
[2022-12-25] MEDS: Cephalexin 250 MG CAP PO SCH ×3 (08:34→21:17)
[2022-12-25] MEDS ORDERED: Carvedilol 6.25 MG TAB PO SCH ×2 (08:45→09:15)
[2022-12-25] MEDS: Carvedilol 25 MG TAB PO SCH ×2 (09:06→16:46)
[2022-12-25] MEDS: Digoxin 0.5 MG/2 ML AMP SLOW IVP SCH ×3 (09:12→13:35)
[2022-12-25] MEDS: Acetaminophen/Codeine 30-300mg Tablet PO PRN (11:31)
[2022-12-25] MEDS: Latanoprost 0.005% Ophth Soln 2.5 ml Bottle EA EYE SCH (21:12)
[2022-12-25] MEDS: Atorvastatin Calcium 10 MG TAB PO SCH (21:13)
[2022-12-26 04:30] LABS: Hematocrit 33.5 % (36.0-47.0); Hemoglobin 10.3 g/dL (12.0-16.0); Mean Corpuscular HGB CONC 30.7 g/dL (32.0-36.0); Mean Corpuscular Hemoglobin 25.6 pg (27.0-31.0); Mean Corpuscular Volume 83.3 fl (78.0-98.0); Mean Platelet Volume 9.8 fL (7.4-10.4); Platelet Count 391 10x3/uL (130-400); RBC Distribution Width 14.4 % (11.5-14.5); Red Blood Cell (RBC) Count 4.02 mill/uL (4.20-5.40); White Blood Cell (WBC) Count 9.4 10x3/uL (4.8-10.8)
[2022-12-26 05:02] LABS: Anion Gap 16 mmol/L (10-20); BUN (Urea Nitrogen) 36 mg/dL (9.8-20.1); Calc. Creatinine Clearance 22 mL/min (70-130); Calcium 9.6 mg/dL (7.8-10.44); Carbon Dioxide 25 mmol/L (23-31); Chloride 101 mmol/L (98-107); Estimated GFR 30; Glucose 110 mg/dL (83-110); Magnesium 2.4 mg/dL (1.6-2.6); Potassium 4.2 mmol/L (3.5-5.1); Sodium 138 mmol/L (136-145)
[2022-12-26] MEDS: Carvedilol 25 MG TAB PO SCH (08:09)
[2022-12-26] MEDS: Cephalexin 250 MG CAP PO SCH ×3 (08:09→20:42)
[2022-12-26] MEDS: Digoxin 0.125 MG TAB PO SCH (08:09)
[2022-12-26] MEDS: Ferrous Sulfate 325 MG TAB PO SCH (08:09)
[2022-12-26] MEDS: Spironolactone 25 MG TAB PO SCH (08:10)
[2022-12-26] MEDS: NIFEdipine XL 60 MG ER.TAB PO SCH ×2 (08:10→20:41)
[2022-12-26] MEDS: Isosorbide Mononitrate 60 MG ER.TAB PO SCH (08:10)
[2022-12-26] MEDS: Brimonidine Tartrate 0.2% Ophth Soln 5 ml Bottle EA EYE SCH ×2 (08:11→20:42)
[2022-12-26] MEDS ORDERED: Apixaban 2.5 MG TAB PO SCH ×2 (10:31→10:45)
[2022-12-26] MEDS ORDERED: Carvedilol 25 MG TAB PO SCH ×3 (10:38→17:00)
[2022-12-26] MEDS: Atorvastatin Calcium 10 MG TAB PO SCH (20:42)
[2022-12-26] MEDS: Latanoprost 0.005% Ophth Soln 2.5 ml Bottle EA EYE SCH (20:42)
[2022-12-26] MEDS: Apixaban 2.5 MG TAB PO SCH (20:42)
[2022-12-27 04:14] LABS: Anion Gap 15 mmol/L (10-20); BUN (Urea Nitrogen) 39 mg/dL (9.8-20.1); Calc. Creatinine Clearance 23 mL/min (70-130); Calcium 9.5 mg/dL (7.8-10.44); Carbon Dioxide 25 mmol/L (23-31); Chloride 102 mmol/L (98-107); Estimated GFR 31; Glucose 126 mg/dL (83-110); Magnesium 2.5 mg/dL (1.6-2.6); Potassium 4.1 mmol/L (3.5-5.1); Sodium 138 mmol/L (136-145)
[2022-12-27] MEDS ORDERED: Carvedilol 25 MG TAB PO SCH (08:00)
[2022-12-27] MEDS: Cephalexin 250 MG CAP PO SCH (08:46)
[2022-12-27] MEDS: Digoxin 0.125 MG TAB PO SCH (08:46)
[2022-12-27] MEDS: Brimonidine Tartrate 0.2% Ophth Soln 5 ml Bottle EA EYE SCH (08:47)
[2022-12-27] MEDS: NIFEdipine XL 60 MG ER.TAB PO SCH (08:47)
[2022-12-27] MEDS: Ferrous Sulfate 325 MG TAB PO SCH (08:47)
[2022-12-27] MEDS: Spironolactone 25 MG TAB PO SCH (08:47)
[2022-12-27] MEDS: Apixaban 2.5 MG TAB PO SCH (08:47)
[2022-12-27] MEDS ORDERED: Isosorbide Mononitrate 60 MG ER.TAB PO SCH (09:00)
[2022-12-27 15:19] VITALS: BP 128/59; TEMP 97.5
== END 2022-12-27 15:58 | disposition home or self-care (01) | DRG 242 ==
LOC: ERS 16:37 → 2NO 18:53 → CCU 12-23 13:12 → 2NO 12-25 13:59
PROVIDERS: ADMIT Internal Medicine; ATTEND Family Medicine
PROC: 0JH606Z Insertion of Pacemaker, Dual Chamber into Chest Subcutaneous Tissue and Fascia, Open Approach (ICD-10-PCS; principal; 2022-12-24)
PROC: 02H63JZ Insertion of Pacemaker Lead into Right Atrium, Percutaneous Approach (ICD-10-PCS; 2022-12-24)
PROC: 02HL3JZ Insertion of Pacemaker Lead into Left Ventricle, Percutaneous Approach (ICD-10-PCS; 2022-12-24)
DX: I49.5 Sick sinus syndrome (principal); I50.33 Acute on chronic diastolic (congestive) heart failure; I13.0 Hypertensive heart and chronic kidney disease with heart failure and stage 1 through stage 4 chronic kidney disease, or unspecified chronic kidney disease; N17.9 Acute kidney failure, unspecified; I48.19 Other persistent atrial fibrillation; N18.32 Chronic kidney disease, stage 3b; I48.0 Paroxysmal atrial fibrillation; D63.1 Anemia in chronic kidney disease; I25.10 Atherosclerotic heart disease of native coronary artery without angina pectoris; K21.9 Gastro-esophageal reflux disease without esophagitis; Z79.82 Long term (current) use of aspirin; M19.90 Unspecified osteoarthritis, unspecified site; Z79.899 Other long term (current) drug therapy; Z90.49 Acquired absence of other specified parts of digestive tract; Z98.890 Other specified postprocedural states; Z90.710 Acquired absence of both cervix and uterus; Z79.01 Long term (current) use of anticoagulants; Z86.73 Personal history of transient ischemic attack (TIA), and cerebral infarction without residual deficits; I08.1 Rheumatic disorders of both mitral and tricuspid valves
CPT/HCPCS: 33208; 36415; 71045; 80048; 80053; 81001; 83690; 83735; 83880; 84443; 84484; 85025; 85027; 93005; 93010; 93306; 93798; 94640; 96374; 96375; 97139; C1769; C1785; C1898; J1160; J1580; J1611; J1940; J2001; J2704; J3010; J3480; J7620

== ENCOUNTER 2023-04-16 08:01 | Inpatient (IN) | payer MEDICARE, OTHER ==
[2023-04-16 08:29] LABS: #Basophils 0.1 thou/uL (0.0-0.2); #Eosinphils 0.2 thou/uL (0.0-0.7); #Monocytes 0.8 thou/uL (0.11-0.59); #Neutrophils 7.3 thou/uL (1.40-6.50); %Basophils 0.5 % (0.0-1.0); %Eosinophils 1.8 % (0.0-10.0); %Lymphocytes 13.5 % (21.0-51.0); %Monocytes 7.9 % (0.0-10.0); %Neutrophils 75.9 % (42.0-75.0); Hematocrit 33.2 % (36.0-47.0); Hemoglobin 10.1 g/dL (12.0-16.0); Mean Corpuscular HGB CONC 30.4 g/dL (32.0-36.0); Mean Corpuscular Hemoglobin 24.8 pg (27.0-31.0); Mean Corpuscular Volume 81.4 fl (78.0-98.0); Mean Platelet Volume 8.8 fL (7.4-10.4); Platelet Count 424 10x3/uL (130-400); RBC Distribution Width 15.5 % (11.5-14.5); Red Blood Cell (RBC) Count 4.08 mill/uL (4.20-5.40); White Blood Cell (WBC) Count 9.6 10x3/uL (4.8-10.8)
[2023-04-16 09:07] LABS: Troponin I 0.024 ng/mL (< 0.028)
[2023-04-16] MEDS ORDERED: Furosemide 40 MG (4 mL) VIAL ONE (09:09)
[2023-04-16] MEDS ORDERED: Aspirin Chewable 81 MG TAB ONE (09:09)
[2023-04-16 09:20] LABS: ALT (SGPT) 9 U/L (8-55); AST (SGOT) 14 U/L (5-34); Albumin 4.1 g/dL (3.4-4.8); Alkaline Phosphatase 130 U/L (40-110); Anion Gap 14 mmol/L (10-20); BUN (Urea Nitrogen) 21 mg/dL (9.8-20.1); Bilirubin, Total 0.4 mg/dL (0.2-1.2); Calc. Creatinine Clearance 0 mL/min (70-130); Carbon Dioxide 22 mmol/L (23-31); Chloride 108 mmol/L (98-107); Estimated GFR 35; Globulin 3.4 g/dL (2.4-3.5); Glucose 142 mg/dL (83-110); Lipase 53 U/L (8-78); Potassium 4.3 mmol/L (3.5-5.1); Protein, Total 7.5 g/dL (5.8-8.1); Sodium 140 mmol/L (136-145)
[2023-04-16] MEDS ORDERED: Senokot S 8.6-50 MG TAB PO PRN (11:23)
[2023-04-16] MEDS ORDERED: Acetaminophen 325 MG TAB PO PRN (11:23)
[2023-04-16] MEDS ORDERED: Ondansetron PF 4 MG/2 ML Vial IVP PRN (11:23)
[2023-04-16] MEDS ORDERED: Bisacodyl 5 MG TAB PO PRN (11:23)
[2023-04-16] MEDS ORDERED: Bisacodyl 10 MG SUPP PR PRN (11:23)
[2023-04-16 12:25] LABS: Hemoglobin A1c 6.2 % (4.0-6.0)
[2023-04-16 13:29] LABS: Troponin I 0.022 ng/mL (< 0.028)
[2023-04-16] MEDS ORDERED: tiZANidine HCl 4 MG TAB PO PRN (16:45)
[2023-04-16] MEDS ORDERED: traMADol HCl 50 MG TAB PO PRN (16:45)
[2023-04-16] MEDS ORDERED: hydrALAZINE 25 MG TAB PO PRN (17:04)
[2023-04-16] MEDS: Carvedilol 25 MG TAB PO SCH (17:24)
[2023-04-16 18:26] LABS: SARS-CoV-2 NAA Rapid Test Not Detected (NotDetected)
[2023-04-16] MEDS: NIFEdipine XL 60 MG ER.TAB PO SCH (20:44)
[2023-04-16] MEDS: Latanoprost 0.005% Ophth Soln 2.5 ml Bottle EA EYE SCH (20:45)
[2023-04-16] MEDS: Atorvastatin Calcium 10 MG TAB PO SCH (20:45)
[2023-04-16] MEDS: Apixaban 2.5 MG TAB PO SCH (20:45)
[2023-04-16] MEDS: Amiodarone 200 MG TAB PO SCH (20:45)
[2023-04-16] MEDS: Brimonidine Tartrate 0.2% Ophth Soln 5 ml Bottle EA EYE SCH (20:46)
[2023-04-17 06:26] LABS: #Eosinphils 0.2 thou/uL (0.0-0.7); #Neutrophils 5.9 thou/uL (1.40-6.50); %Basophils 0.5 % (0.0-1.0); %Eosinophils 1.8 % (0.0-10.0); %Lymphocytes 17.8 % (21.0-51.0); %Neutrophils 67.6 % (42.0-75.0); Hematocrit 31.8 % (36.0-47.0); Hemoglobin 9.5 g/dL (12.0-16.0); Mean Corpuscular HGB CONC 29.9 g/dL (32.0-36.0); Mean Corpuscular Hemoglobin 24.7 pg (27.0-31.0); Mean Corpuscular Volume 82.6 fl (78.0-98.0); Mean Platelet Volume 9.3 fL (7.4-10.4); Platelet Count 391 10x3/uL (130-400); RBC Distribution Width 15.7 % (11.5-14.5); Red Blood Cell (RBC) Count 3.85 mill/uL (4.20-5.40); White Blood Cell (WBC) Count 8.7 10x3/uL (4.8-10.8)
[2023-04-17 07:18] LABS: ALT (SGPT) 7 U/L (8-55); AST (SGOT) 12 U/L (5-34); Albumin 3.5 g/dL (3.4-4.8); Alkaline Phosphatase 98 U/L (40-110); Anion Gap 11 mmol/L (10-20); BUN (Urea Nitrogen) 18 mg/dL (9.8-20.1); Bilirubin, Direct 0.2 mg/dL (0.1-0.3); Bilirubin, Total 0.5 mg/dL (0.2-1.2); Calc. Creatinine Clearance 30 mL/min (70-130); Calcium 8.6 mg/dL (7.8-10.44); Carbon Dioxide 24 mmol/L (23-31); Cardiac Risk 1.9 (Less than 4.5); Chloride 109 mmol/L (98-107); Cholesterol 97 mg/dl (< 200 Desired); Estimated GFR 42; Glucose 87 mg/dL (83-110); HDL Cholesterol 51 mg/dL (>60 Neg Risk); LDL Cholesterol, Calculated 29 mg/dL; Magnesium 2.1 mg/dL (1.6-2.6); Potassium 3.9 mmol/L (3.5-5.1); Protein, Total 6.4 g/dL (5.8-8.1); Sodium 140 mmol/L (136-145); Triglycerides 83 mg/dL (Less than 150)
[2023-04-17] MEDS: Isosorbide Mononitrate 60 MG ER.TAB PO SCH (09:39)
[2023-04-17] MEDS: Digoxin 0.125 MG TAB PO SCH (09:39)
[2023-04-17] MEDS: Ferrous Sulfate 325 MG TAB PO SCH (09:39)
[2023-04-17] MEDS: Spironolactone 25 MG TAB PO SCH (09:39)
[2023-04-17] MEDS: Amiodarone 200 MG TAB PO SCH ×3 (09:39→20:18)
[2023-04-17] MEDS: Apixaban 2.5 MG TAB PO SCH ×2 (09:40→20:19)
[2023-04-17] MEDS: Brimonidine Tartrate 0.2% Ophth Soln 5 ml Bottle EA EYE SCH ×2 (09:40→20:20)
[2023-04-17] MEDS: Aspirin Chewable 81 MG TAB PO SCH (09:40)
[2023-04-17] MEDS: Carvedilol 25 MG TAB PO SCH ×2 (09:40→17:59)
[2023-04-17] MEDS: Furosemide 40 MG (4 mL) VIAL SLOW IVP SCH ×2 (09:41→14:08)
[2023-04-17] MEDS: NIFEdipine XL 60 MG ER.TAB PO SCH ×2 (09:41→20:18)
[2023-04-17] MEDS: Cholecalciferol 1,000 UNITS (25 MCG) TAB PO SCH (09:41)
[2023-04-17] MEDS ORDERED: Furosemide 40 MG (4 mL) VIAL SLOW IVP SCH (14:00)
[2023-04-17] MEDS: Atorvastatin Calcium 10 MG TAB PO SCH (20:19)
[2023-04-17] MEDS: Latanoprost 0.005% Ophth Soln 2.5 ml Bottle EA EYE SCH (20:19)
[2023-04-18 05:19] LABS: #Basophils 0.1 thou/uL (0.0-0.2); #Eosinphils 0.2 thou/uL (0.0-0.7); #Monocytes 0.8 thou/uL (0.11-0.59); %Basophils 0.6 % (0.0-1.0); %Eosinophils 1.9 % (0.0-10.0); %Lymphocytes 18.8 % (21.0-51.0); %Monocytes 9.6 % (0.0-10.0); %Neutrophils 68.8 % (42.0-75.0); Hematocrit 31.9 % (36.0-47.0); Hemoglobin 9.6 g/dL (12.0-16.0); Mean Corpuscular HGB CONC 30.1 g/dL (32.0-36.0); Mean Corpuscular Hemoglobin 24.7 pg (27.0-31.0); Mean Corpuscular Volume 82.2 fl (78.0-98.0); Mean Platelet Volume 9.5 fL (7.4-10.4); Platelet Count 393 10x3/uL (130-400); RBC Distribution Width 15.6 % (11.5-14.5); Red Blood Cell (RBC) Count 3.88 mill/uL (4.20-5.40); White Blood Cell (WBC) Count 8.7 10x3/uL (4.8-10.8)
[2023-04-18 05:46] LABS: Anion Gap 12 mmol/L (10-20); BUN (Urea Nitrogen) 16 mg/dL (9.8-20.1); Calc. Creatinine Clearance 25 mL/min (70-130); Calcium 8.6 mg/dL (7.8-10.44); Carbon Dioxide 24 mmol/L (23-31); Chloride 108 mmol/L (98-107); Estimated GFR 34; Glucose 95 mg/dL (83-110); Sodium 140 mmol/L (136-145)
[2023-04-18] MEDS: Digoxin 0.125 MG TAB PO SCH (09:38)
[2023-04-18] MEDS: Spironolactone 25 MG TAB PO SCH (09:47)
[2023-04-18] MEDS: Amiodarone 200 MG TAB PO SCH ×3 (09:47→20:58)
[2023-04-18] MEDS: Carvedilol 25 MG TAB PO SCH ×2 (09:48→16:50)
[2023-04-18] MEDS: NIFEdipine XL 60 MG ER.TAB PO SCH ×2 (09:48→20:58)
[2023-04-18] MEDS: Aspirin Chewable 81 MG TAB PO SCH (09:48)
[2023-04-18] MEDS: Apixaban 2.5 MG TAB PO SCH ×2 (09:49→20:58)
[2023-04-18] MEDS: Furosemide 40 MG (4 mL) VIAL SLOW IVP SCH (09:50)
[2023-04-18] MEDS: Isosorbide Mononitrate 60 MG ER.TAB PO SCH (10:49)
[2023-04-18] MEDS: Brimonidine Tartrate 0.2% Ophth Soln 5 ml Bottle EA EYE SCH ×2 (10:49→20:59)
[2023-04-18] MEDS: Cholecalciferol 1,000 UNITS (25 MCG) TAB PO SCH (10:49)
[2023-04-18] MEDS: Ferrous Sulfate 325 MG TAB PO SCH (10:49)
[2023-04-18] MEDS: Latanoprost 0.005% Ophth Soln 2.5 ml Bottle EA EYE SCH (20:58)
[2023-04-18] MEDS: Atorvastatin Calcium 10 MG TAB PO SCH (20:58)
[2023-04-19 05:19] LABS: #Basophils 0.1 thou/uL (0.0-0.2); #Eosinphils 0.2 thou/uL (0.0-0.7); #Monocytes 0.9 thou/uL (0.11-0.59); #Neutrophils 6.1 thou/uL (1.40-6.50); %Basophils 0.6 % (0.0-1.0); %Eosinophils 1.8 % (0.0-10.0); %Lymphocytes 18.6 % (21.0-51.0); %Monocytes 10.5 % (0.0-10.0); %Neutrophils 68.2 % (42.0-75.0); Hematocrit 33.3 % (36.0-47.0); Mean Corpuscular Hemoglobin 24.7 pg (27.0-31.0); Mean Corpuscular Volume 82.2 fl (78.0-98.0); Mean Platelet Volume 9.3 fL (7.4-10.4); Platelet Count 409 10x3/uL (130-400); RBC Distribution Width 15.6 % (11.5-14.5); Red Blood Cell (RBC) Count 4.05 mill/uL (4.20-5.40); White Blood Cell (WBC) Count 8.9 10x3/uL (4.8-10.8)
[2023-04-19 06:19] LABS: Anion Gap 13 mmol/L (10-20); BUN (Urea Nitrogen) 17 mg/dL (9.8-20.1); Calc. Creatinine Clearance 25 mL/min (70-130); Calcium 8.2 mg/dL (7.8-10.44); Carbon Dioxide 24 mmol/L (23-31); Chloride 108 mmol/L (98-107); Estimated GFR 33; Glucose 99 mg/dL (83-110); Magnesium 1.9 mg/dL (1.6-2.6); Potassium 3.8 mmol/L (3.5-5.1); Sodium 141 mmol/L (136-145)
[2023-04-19] MEDS ORDERED: PROPOFOL 20 ML ONE (07:40)
[2023-04-19] MEDS: Carvedilol 25 MG TAB PO SCH (10:17)
[2023-04-19] MEDS: Amiodarone 200 MG TAB PO SCH ×2 (10:18→16:46)
[2023-04-19] MEDS: Cholecalciferol 1,000 UNITS (25 MCG) TAB PO SCH (10:18)
[2023-04-19] MEDS: Apixaban 2.5 MG TAB PO SCH (10:18)
[2023-04-19] MEDS: Aspirin Chewable 81 MG TAB PO SCH (10:18)
[2023-04-19] MEDS: Ferrous Sulfate 325 MG TAB PO SCH (10:18)
[2023-04-19] MEDS: NIFEdipine XL 60 MG ER.TAB PO SCH (10:19)
[2023-04-19] MEDS: Spironolactone 25 MG TAB PO SCH (10:19)
[2023-04-19] MEDS: Brimonidine Tartrate 0.2% Ophth Soln 5 ml Bottle EA EYE SCH (10:19)
[2023-04-19] MEDS: Isosorbide Mononitrate 60 MG ER.TAB PO SCH (10:20)
[2023-04-19] MEDS ORDERED: Carvedilol 25 MG TAB PO SCH (17:00)
[2023-04-19 17:18] VITALS: BP 109/56; TEMP 98.2
== END 2023-04-19 18:08 | disposition home or self-care (01) | DRG 291 ==
LOC: ERS 08:01 → SUATTDRO 08:01 → ERHOLD 11:23 → 2SW 15:57 → OBSVTOIN 04-18 14:04
PROVIDERS: ADMIT Family Medicine; ATTEND Family Medicine
PROC: B24BZZ4 Ultrasonography of Heart with Aorta, Transesophageal (ICD-10-PCS; principal; 2023-04-19)
DX: I13.0 Hypertensive heart and chronic kidney disease with heart failure and stage 1 through stage 4 chronic kidney disease, or unspecified chronic kidney disease (principal); I50.33 Acute on chronic diastolic (congestive) heart failure; J96.01 Acute respiratory failure with hypoxia; K92.2 Gastrointestinal hemorrhage, unspecified; I25.10 Atherosclerotic heart disease of native coronary artery without angina pectoris; K21.9 Gastro-esophageal reflux disease without esophagitis; D63.1 Anemia in chronic kidney disease; Z79.82 Long term (current) use of aspirin; Z79.01 Long term (current) use of anticoagulants; Z79.899 Other long term (current) drug therapy; Z90.710 Acquired absence of both cervix and uterus; Z95.5 Presence of coronary angioplasty implant and graft; Z90.49 Acquired absence of other specified parts of digestive tract; Z98.890 Other specified postprocedural states; N18.32 Chronic kidney disease, stage 3b; R73.03 Prediabetes; I48.0 Paroxysmal atrial fibrillation; M19.90 Unspecified osteoarthritis, unspecified site; E78.5 Hyperlipidemia, unspecified; Z11.52 Encounter for screening for COVID-19
CPT/HCPCS: 0241U; 36415; 71045; 80048; 80053; 80061; 80076; 83036; 83690; 83735; 83880; 84443; 84484; 85025; 86850; 86860; 86870; 86880; 86900; 86901; 86905; 86921; 86922; 86970; 86978; 92960; 93005; 93306; 93312; 93798; 94760; 96374; 96376; G0378; J1940; J2704

== ENCOUNTER 2023-08-24 07:48 | Outpatient (CLI) | payer MEDICARE | END 2023-08-24 07:49 | disposition home or self-care (01) | LOC: BICMAMMO 07:48 | PROVIDERS: ATTEND Internal Medicine | DX: Z12.31 Encounter for screening mammogram for malignant neoplasm of breast (principal); Z91.89 Other specified personal risk factors, not elsewhere classified | CPT/HCPCS: 77063; 77067 ==